=== PATIENT | female | born 1955 | race Two or more races ===

== ENCOUNTER 2020-04-16 10:59 | Observation (INO) | payer OTHER, SELFPAY ==
[2020-04-16] VITALS (7 sets, daily range): BP systolic 101–157; BP diastolic 45–76; PULSE 58–74; RESP 14–19; TEMP 36.4–37.4; O2SAT 94–99; BMI 32.0
[2020-04-16 13:04] LABS: Hematocrit 46.4 % (37-47); Hemoglobin 15.5 g/dl (12.0-16.0); Mean Corpuscular HGB Conc 33.4 g/dl (31.0-35.0); Mean Corpuscular Hemoglobin 29.4 pg (27.0-33.0); Mean Platelet Volume 10.2 fL (9.4-12.3); Platelet Count 243 X10*3/uL (160-400); Red Blood Count 5.27 X10*6/uL (4.20-5.50); Red Cell Distribution Width 12.3 % (11.0-16.0)
--- NOTE | 2020-04-16 13:05 | ED_ITS ---
HPI - Abdominal Pain General Chief Complaint: Abdominal Pain Stated Complaint: stomach pain,vomiting Time Seen by Provider: 04/16/20 13:01 Source: patient Mode of arrival: ambulatory Limitations: no limitations History of Present Illness HPI narrative: 65 y/o female with history of opioid dependence on Methadone gerardo ntinence, HLD, asthma, HTN, hx gastroenteritis with elevated LFTs in the past (hepatitis panel negative) who presents to the ED with upper abdominal pain, nausea, vomiting and chills for the last 2 days. She has vomited about 7-8 times, non-bilious, non-bloody. She also has had several episodes of diarrhea. No sick contacts, no food bourne illness exposure that she knows of, no recent abx use. She reports her symptoms are similar to when she was admitted here last year with gastroenteritis. Related Data Allergies Allergy/AdvReac Type Severity Reaction Status Date / Time codeine [CODEINE] AdvReac Severe VOMITING Unverified 01/12/20 15:43 FOR DAYS codeine Allergy Unknown Uncoded 07/01/18 00:00 Review of Systems Review of Systems Constitutional: No Fever, + Chills ENT/Mouth: No sore throat, No Rhinorrhea, No Swallowing Difficulty Eyes: No Eye Pain, No Swelling, No Redness Cardiovascular: No Chest Pain, No SOB, No Orthopnea, No Edema Respiratory: No Cough, No Sputum, No Wheezing, No dyspnea Gastrointestinal: + Nausea, + Vomiting, + Diarrhea, + abdominal Pain, No Hematochezia, No Melena Genitourinary: No Dysuria, No Urinary Frequency, No Hematuria Musculoskeletal: No joint pain, No Myalgias Skin: No Skin Lesions, No rash Neuro: + Weakness, No Numbness, No Dizziness, + Headache Psych: No Anxiety/Panic, No Depression Heme/Lymph: No Bruising, No Lymphadenopathy Endocrine: No Polyuria, No Polydipsia Physical Exam Vital Signs: Vital Signs: Last Vital Signs Temp 99.4 F 04/16/20 16:44 Pulse 69 04/16/20 16:44 Resp 14 04/16/20 16:44 BP 157/76 H 04/16/20 16:44 Pulse Ox 99 04/16/20 16:44 Body Mass Index 32.0 Appearance: Alert. Oriented X3. No acute distress. Eyes: Pupils equal, round and reactive to light. ENT: Pharynx normal. Neck: Normal inspection. Neck supple. CVS: Normal heart rate and rhythm. Pulses normal. Respiratory: No respiratory distress. Breath sounds normal. Abdomen: Soft with upper abdominal tenderness and epigastric tenderness. normal +BS x4 Skin: Skin warm and dry. Normal skin color. Normal skin turgor. No rashes. Extremities: No lower extremity edema. Neuro: Oriented X 3. No motor deficit. No sensory deficit. Course Course Course Narrative: 65 y/o female presenting with upper abdominal pain, N/V x2 days. Concern for possible cholecystitis, biliary colic, gastroenteritis. Less likely diverticulitis, SBO, mesenteric ischemia or perforation. Will get labs, give IVF and Zofran here. Dispo pending results and improvement. Reevaluation(s) Reevaluation #1: Lab workup showing leukocytosis 17.3, possible reactive. LFTs and lipase are normal. CT scan pending. Reevaluation #2: 16:20 - CT scan still pending. Patient received Zofran and GI cocktail with brief improvement but she is now vomiting again. Will give dose of Phenergan and reassess. Reevaluation #3: CT scan shows possible mild ileitis with small amount of free fluid in the pelvis, nondilated but thick walled loop of ileum with mesenteric stranding. Given persistent N/V will give dose of IV antibiotics here and reassess ability to tolerate PO. Signed out to Onel LOGAN. MDM - Abdominal Pain Lab Data Result diagrams: 04/16/20 12:49 04/16/20 12:50 Labs: Lab Results 04/16/20 04/16/20 04/16/20 Range/Units 12:49 12:49 12:50 WBC 17.3 H (4.8-10.8) X10*3/uL RBC 5.27 (4.20-5.50) X10*6/uL Hgb 15.5 (12.0-16.0) g/dl Hct 46.4 (37-47) % MCV 88.0 (80-98) fL MCH 29.4 (27.0-33.0) pg MCHC 33.4 (31.0-35.0) g/dl RDW 12.3 (11.0-16.0) % Plt Count 243 (160-400) X10*3/uL MPV 10.2 (9.4-12.3) fL Immature Gran % (Auto) Cancelled Neut % (Auto) Cancelled Lymph % (Auto) Cancelled [place] % (Auto) Cancelled Eos % (Auto) Cancelled Baso % (Auto) Cancelled Lymph # (Auto) Cancelled [place] # (Auto) Cancelled Eos # (Auto) Cancelled Baso # (Auto) Cancelled Abs Immat Gran (auto) Cancelled Absolute Neuts (auto) Cancelled Absolute Nucleated RBC 0.000 (0.0-0.012) X10*3/uL Nucleated RBC % (auto) 0.0 (0.0-0.2) /100WBC Neutrophils % (Manual) 87 H (45-73) % Band Neutrophils % 1 L (3-5) % Lymphocytes % (Manual) 11 L (20-40) % Monocytes % (Manual) 1 L (2-11) % Abs Neuts (Manual) 15.2 H (2.2-7.9) X10*3/uL Lymphocytes # (Manual) 1.9 (0.6-4.8) X10*3/uL Monocytes # (Manual) 0.2 (0.0-1.2) X10*3/uL Platelet Estimate NORMAL (NORMAL) Plt Morphology Comment NORMAL RBC Morphology NORMAL Hold Blue Top SEE NOTE Sodium 138 (135-145) mmol/L Potassium 5.2 H (3.3-5.1) mmol/l Chloride 103 (96-108) mmol/L Carbon Dioxide 24 (22-29) mmol/L Anion Gap 16 (12-20) BUN 27 H (9-16) mg/dL Creatinine 0.82 (0.5-1.4) mg/dL Estim Creat Clear Calc 63.2 Estimated GFR > 60 Random Glucose 142 H (60-115) mg/dL Calcium 9.4 (8.4-10.2) mg/dL Magnesium 1.7 (1.6-2.6) mg/dL Total Bilirubin 0.4 (0.0-1.0) mg/dL Direct Bilirubin 0.2 (0.0-0.5) mg/dL AST 30 (5-31) U/L ALT 31 (0-31) U/L Alkaline Phosphatase 110 (39-117) U/L Total Protein 7.2 (6.5-8.0) g/dL Albumin 4.3 (3.5-5.0) g/dL Lipase 17 (8-78) U/L Urine Color Urine Appearance Urine pH (5.0-8.0) Ur Specific [place] (1.005-1.025) Urine Protein (NEG-TRACE) MG/DL Urine Glucose (UA) (NEG) MG/DL Urine Ketones (NEG) MG/DL Urine Blood (NEG) Urine Nitrite (NEG) Ur Leukocyte Esterase (NEG) Urine RBC (0) /HPF Urine WBC (0-4) /HPF Ur Squamous Epith Cells /LPF Urine Bacteria /LPF Coronavirus (PCR) (Negative) Influenza Type A (PCR) (Negative) Influenza Type B (PCR) (Negative) RSV RNA Qual (PCR) (Negative) 04/16/20 04/16/20 Range/Units 13:07 15:41 WBC (4.8-10.8) X10*3/uL RBC (4.20-5.50) X10*6/uL Hgb (12.0-16.0) g/dl Hct (37-47) % MCV (80-98) fL MCH (27.0-33.0) pg MCHC (31.0-35.0) g/dl RDW (11.0-16.0) % Plt Count (160-400) X10*3/uL MPV (9.4-12.3) fL Immature Gran % (Auto) Neut % (Auto) Lymph % (Auto) [place] % (Auto) Eos % (Auto) Baso % (Auto) Lymph # (Auto) [place] # (Auto) Eos # (Auto) Baso # (Auto) Abs Immat Gran (auto) Absolute Neuts (auto) Absolute Nucleated RBC (0.0-0.012) X10*3/uL Nucleated RBC % (auto) (0.0-0.2) /100WBC Neutrophils % (Manual) (45-73) % Band Neutrophils % (3-5) % Lymphocytes % (Manual) (20-40) % Monocytes % (Manual) (2-11) % Abs Neuts (Manual) (2.2-7.9) X10*3/uL Lymphocytes # (Manual) (0.6-4.8) X10*3/uL Monocytes # (Manual) (0.0-1.2) X10*3/uL Platelet Estimate (NORMAL) Plt Morphology Comment RBC Morphology Hold Blue Top Sodium (135-145) mmol/L Potassium (3.3-5.1) mmol/l Chloride (96-108) mmol/L Carbon Dioxide (22-29) mmol/L Anion Gap (12-20) BUN (9-16) mg/dL Creatinine (0.5-1.4) mg/dL Estim Creat Clear Calc Estimated GFR Random Glucose (60-115) mg/dL Calcium (8.4-10.2) mg/dL Magnesium (1.6-2.6) mg/dL Total Bilirubin (0.0-1.0) mg/dL Direct Bilirubin (0.0-0.5) mg/dL AST (5-31) U/L ALT (0-31) U/L Alkaline Phosphatase (39-117) U/L Total Protein (6.5-8.0) g/dL Albumin (3.5-5.0) g/dL Lipase (8-78) U/L Urine Color YELLOW Urine Appearance CLEAR Urine pH 5.5 (5.0-8.0) Ur Specific [place] <= 1.005 (1.005-1.025) Urine Protein NEG (NEG-TRACE) MG/DL Urine Glucose (UA) NEG (NEG) MG/DL Urine Ketones NEG (NEG) MG/DL Urine Blood 1+ H (NEG) Urine Nitrite NEG (NEG) Ur Leukocyte Esterase NEG (NEG) Urine RBC 1-4 (0) /HPF Urine WBC 0 (0-4) /HPF Ur Squamous Epith Cells TRACE /LPF Urine Bacteria NONE /LPF Coronavirus (PCR) NEGATIVE (Negative) Influenza Type A (PCR) NEGATIVE (Negative) Influenza Type B (PCR) NEGATIVE (Negative) RSV RNA Qual (PCR) NEGATIVE (Negative) Discharge Plan Discharge Clinical Impression: Ileitis PMFSH Past Medical History Attestation statement: The following information was validated with the patient. Medical History High cholesterol HTN (hypertension) Social History Social History Smoked in Last 30 Days: No Use of substances other than those prescribed or required for medical reasons: Yes Substance Use Type Other:: Methadone Substance Use Frequency: Chronic Longstanding Advance Directives: No Advance Directives Information Provided: No
[2020-04-16 13:08] LABS: WBC ABN SCTR FOR CBC 1
[2020-04-16 13:34] LABS: Alanine Aminotransferase 31 U/L (0-31); Albumin Level 4.3 g/dL (3.5-5.0); Alkaline Phosphatase 110 U/L (39-117); Anion Gap 16 (12-20); Aspartate Amino Transferase 30 U/L (5-31); Bilirubin Direct 0.2 mg/dL (0.0-0.5); Bilirubin Total 0.4 mg/dL (0.0-1.0); Blood Urea Nitrogen 27 mg/dL (9-16); Calcium 9.4 mg/dL (8.4-10.2); Carbon Dioxide 24 mmol/L (22-29); Chloride 103 mmol/L (96-108); Creatinine Clr Calc Pharmacy 63.2; Estimated Glomerular Filt Rate > 60; Glucose Random 142 mg/dL (60-115); Lipase 17 U/L (8-78); Magnesium 1.7 mg/dL (1.6-2.6); Potassium 5.2 mmol/l (3.3-5.1); Sodium 138 mmol/L (135-145); Total Protein 7.2 g/dL (6.5-8.0)
[2020-04-16 13:36] LABS: Band Neutrophils Percent 1 % (3-5); Lymphocytes Percent Manual 11 % (20-40); Monocytes Percent Manual 1 % (2-11); Neutrophils Percent Manual 87 % (45-73)
[2020-04-16 13:39] LABS: Lymphocytes Absolute Manual 1.9 X10*3/uL (0.6-4.8); Monocytes Absolute Manual 0.2 X10*3/uL (0.0-1.2); Neutrophils Absolute Manual 15.2 X10*3/uL (2.2-7.9); Platelet Estimate NORMAL (NORMAL); Platelet Morphology Comment NORMAL; RBC Morphology NORMAL; White Blood Count 17.3 X10*3/uL (4.8-10.8)
--- NOTE | 2020-04-16 13:45 | CT_ITS ---
EXAMINATION: CT ABDOMEN AND PELVIS WITH CONTRAST CLINICAL INFORMATION: Abdominal pain with nausea and vomiting and elevated white count COMPARISON: October 14, 2018 TECHNIQUE: Multidetector volumetric images were obtained from the superior aspect of the liver through the pubic symphysis following administration 85 mL of Omnipaque 350 intravenous contrast. Sagittal and coronal reformatted images were obtained on the technologist's workstation. Oral contrast: No This CT examination was performed using dose optimization techniques as appropriate, variously including the following: *Automated exposure control *Adjustment of mA and/or kV according to patient size (this includes techniques or standardized protocols for targeted exams where dose is matched to indication/reason for exam; i.e. extremities or head) *Use of iterative reconstruction technique DLP: 615 mGy-cm FINDINGS: LUNG BASES: The visualized lung bases are unremarkable. No pleural or pericardial effusion. LIVER, GALLBLADDER, AND BILIARY TREE: There are multiple scattered subcentimeter low-density lesions likely representing cyst. No definite focal solid mass is appreciated. No intrahepatic bile duct dilatation. The gallbladder is distended. No evidence of cholecystitis or cholelithiasis. The common hepatic duct is prominent at approximately 9 mm diameter with the common bile duct being prominent at approximately 8 mm in diameter. No radiopaque density is seen within the common bile duct. This is similar in appearance to previous study of October 14, 2018. The common bile duct does taper down to normal size with a prominent ampulla of Vater being present. No jabier-cholecystitis fluid. PANCREAS: Unremarkable. SPLEEN: Unremarkable. ADRENAL GLANDS: Unremarkable. KIDNEYS AND URETERS: The kidneys are normal in size, shape, and attenuation. No hydronephrosis, hydroureter, or calculi seen. No perinephric stranding. BLADDER: Unremarkable. GASTROINTESTINAL TRACT: No dilated loops of large or small bowel are evident. No free air. There is small amount of free fluid seen about the pelvis. There is mild diverticulosis of the sigmoid colon without definite evidence of acute diverticulitis. There is small amount of mesenteric stranding but without definite adenopathy or abnormal fluid collection. The appendix is visualized and appears unremarkable. There is a single loop of what appears to be ileum about the pelvis which may have a thickened wall but without dilatation or adjacent fluid collection. This is in region of some haziness within the mesentery and may represent some form ileitis. ABDOMINAL WALL: No significant hernia is appreciated. LYMPH NODES: No lymphadenopathy appreciated. VASCULAR: Unremarkable. PELVIC VISCERA: Small amount of free fluid. No suspicious mass. OSSEOUS STRUCTURES: No suspicious instructed bony lesions identified. There is bilateral facet arthropathy L4-S1 with a mild grade 1 spondylolisthesis L4-L5. CT/CT abdomen pelvis w con IMPRESSION: Stable prominence of the common hepatic and common bile duct. Small amount of free fluid within the pelvis with question nondilated but thick-walled loop of ileum with some stranding within the mesentery. This may possibly represent ileitis but is a soft finding. No evidence of ileus or obstruction. No evidence of obstructive uropathy.
[2020-04-16] MEDS: Omeprazole 40 MG CAPSULE.DR PO (14:18)
[2020-04-16] MEDS: Magnesium Hydrox/Alum Hydrox 30 ML ORAL.SUSP PO (14:18)
[2020-04-16] MEDS: 0.9 % Sodium Chloride 1,000 ML 999 ML IVCONT (14:18)
[2020-04-16] MEDS: Lidocaine HCl Viscous 2 % 15 ML SOLUTION MUCOUS MEM (14:18)
[2020-04-16 14:23] LABS: Influenza A PCR NEGATIVE (Negative); Influenza B PCR NEGATIVE (Negative); Resp Syncy Virus RNA Qual PCR NEGATIVE (Negative); SARS COV2 PCR INHOUSE NEGATIVE (Negative)
[2020-04-16] MEDS: ondansetron HCL 4 MG/2 ML VIAL IVPUSH (14:24)
[2020-04-16] MEDS: iohexoL 350 MG/ML 100 ML INFUS..BTL 85 ML IV (14:45)
[2020-04-16 15:49] LABS: Glucose Urine UA NEG (NEG); Leukocyte Esterase Urine NEG (NEG); Nitrite Urine NEG (NEG); PH 5.5 (5.0-8.0); Specific Gravity - Urine <= 1.005 (1.005-1.025); Urine Blood 1+ (NEG); Urine Ketones NEG (NEG); Urine Protein NEG (NEG-TRACE)
[2020-04-16 15:52] LABS: Color Urine YELLOW
[2020-04-16 15:53] LABS: Appearance Urine CLEAR
[2020-04-16 15:57] LABS: Squamous Epithelial Cell Urine TRACE /LPF; WBC Urine 0 /HPF (0-4)
--- NOTE | 2020-04-16 17:00 | PC.NURSE ---
Pt with unresolved nausea. DESMOND Ayala notified. Pt medicated per emar.
[2020-04-16] MEDS: Prochlorperazine Edisylate 10 MG/2 ML VIAL 5 MG IVPUSH (18:49)
[2020-04-16] MEDS: metroNIDAZOLE/NS 500 MG/100 ML PIGGYBACK 100 MG IV (18:50)
[2020-04-16] MEDS: diphenhydrAMINE HCL 50 MG/ML VIAL 25 MG IVPUSH (18:50)
[2020-04-16 19:32] LABS: Lactic Acid 2.5 mmol/L (0.5-2.0)
[2020-04-16] MEDS: levoFLOXacin/D5W 500 MG/100 ML PIGGYBACK 100 MG IV (19:49)
--- NOTE | 2020-04-16 19:49 | HP_ITS ---
DATE OF SERVICE: 04/16/2020 CHIEF COMPLAINT: Abdominal pain. HISTORY OF PRESENT ILLNESS: A 65-year-old woman presenting to the ER with complaints of worsening abdominal pain, bloating, distention, and gas over the last 2 days. She reported also some cramping, vomiting, and diarrhea. She reported some chills without fever. She reported she had a similar episode like this in 2019, which seemed to be related to a viral gastroenteritis. She denied any improperly cooked foods or exposure to anyone with any gastrointestinal issues. She was noted to have an elevated white blood cell count of 17.3. No fever. She did receive PPI, IV fluid, promethazine, ceftriaxone, Flagyl, Levaquin. She will be admitted for further management and treatment of gastroenteritis versus ileitis. PAST MEDICAL HISTORY: 1. Hypertension. 2. Hyperlipidemia. 3. Asthma. 4. Opioid dependence, on methadone. PAST SURGICAL HISTORY: Left knee surgery. FAMILY HISTORY: Denies any cardiac or gastrointestinal problems. SOCIAL HISTORY: Denies any alcohol, tobacco, illicit drug use. ALLERGIES: CODEINE. MEDICATIONS: 1. Atorvastatin 20 mg at bedtime. 2. Breo Ellipta. 3. Clonidine 0.1 mg 1 tablet twice daily. 4. Fluticasone 1 spray intranasally daily. 5. Hydroxyzine 25 mg every 8 hours as needed. 6. Lisinopril 10 mg 1 tab daily. 7. Lorazepam 0.5 mg tab every 6 hours as needed. 8. Ondansetron 4 mg every 8 hours as needed for nausea. REVIEW OF SYSTEMS: CONSTITUTIONAL: Denies any fever. Reports chills. No decrease in appetite. RESPIRATORY: Denies any shortness of breath, cough, or sputum production. CARDIOVASCULAR: Denies any chest pain, orthopnea, PND, or edema. GASTROINTESTINAL: See HPI. GENITOURINARY: Denies any dysuria, frequency, or hematuria. MUSCULOSKELETAL: Denies any joint pain or swelling. NEUROPSYCH: Denies any weakness or seizures. All other systems are reviewed and are negative. PHYSICAL EXAMINATION: CONSTITUTIONAL: Resting in bed, appearing in no acute distress. VITAL SIGNS: 157/76, 68, 16, 97% on room air. SKIN: Intact without rash or open sores. HEENT: Head is normocephalic, atraumatic. Eyes, pupils are PERRLA. Sclerae anicteric. Mouth and throat: Mucous membranes are intact and moist. NECK: Supple. No lymphadenopathy. No JVD noted. CHEST: Clear to auscultation without wheezes, rhonchi, or rales. HEART: Regular rate and rhythm. Clear S1, S2. No murmurs, rubs, gallops. ABDOMEN: Positive bowel sounds. Abdomen is soft, nontender. No hepatomegaly or splenomegaly noted. NEURO: The patient is alert and oriented x3. Cranial nerves II through XII grossly intact without focal deficits. LABORATORY DATA: WBC 17.3, hemoglobin 15.5, hematocrit 46.4, platelets 243. Sodium is 138, potassium is 5.2, chloride is 103, BUN is 27, creatinine 0.82, glucose is 142, normal LFTs. Negative urinalysis. ASSESSMENT AND PLAN: A 65-year-old woman, who is being admitted with abdominal pain, nausea and vomiting. She reported that she had taken 2 Excedrin for headache yesterday, but has not been overly taking any NSAIDs. She reported her pain more at the mouth of the stomach which may be more related to gastroenteritis. Abdominal CT shows possible less likely ileitis. She also has some diarrhea, so differential diagnosis could include C diff as well. 1. Gastroenteritis. We will treat with PPI, antiemetics, IV fluids, GI consultation. We will also check stool studies and C diff due to diarrhea. We will hold off on antibiotics for now. She did receive several doses in the ER. 2. Leukocytosis. No signs of infection noted, but we will check stool studies. Hold off on antibiotics for now. Follow CBC closely. 3. Hyperkalemia. Mild. We will follow BMP tomorrow. 4. Hyperlipidemia. Continue statin. 5. Hypertension. Continue home medication. 6. Asthma. Albuterol as needed. 7. Deep vein thrombosis prophylaxis with heparin. 8. Case discussed with Dr. Barbour. 9. Full code. CALIXTO Molina JR/PATTY / [id number]
[2020-04-16 20:47] LABS: Reflex Lactate? Lactic Acid Added
--- NOTE | 2020-04-16 21:05 | PM.EVENT ---
Event Note Date of Service: 04/16/20 Event Note: Seen and examined independently. I agree with ATYLOR note, assessment and plan. Patient presents with abdominal pain, around the epigastric area, associated with nausea, vomiting and diarrhea for the past 2 days. Will treat for gastroenteritis For full note please see H&P
[2020-04-16 21:40] LABS: ~Lactic Acid-LAB USE ONLY 1.9 mmol/L (0.5-2.0)
[2020-04-16] MEDS: Heparin Sodium,Porcine 5,000 UNIT/ML VIAL 5000 UNIT SUBCUT (22:52)
[2020-04-17 04:00] VITALS: BP 142/69; PULSE 78; RESP 19; TEMP 36.7; O2SAT 96
[2020-04-17 04:01] VITALS: BP 112/58; PULSE 65; RESP 20; TEMP 36.7; O2SAT 97
[2020-04-17] MEDS: Omeprazole 20 MG CAPSULE.DR PO (05:47)
[2020-04-17 06:18] LABS: MANUAL DIFF FLAG NO
[2020-04-17 06:54] LABS: Anion Gap 13 (12-20); Basophils Percent Auto 0.2 % (0-2); Blood Urea Nitrogen 27 mg/dL (9-16); Calcium 8.4 mg/dL (8.4-10.2); Carbon Dioxide 25 mmol/L (22-29); Chloride 105 mmol/L (96-108); Creatinine Clr Calc Pharmacy 67.3; Estimated Glomerular Filt Rate > 60; Glucose Random 78 mg/dL (60-115); Hematocrit 37.3 % (37-47); Hemoglobin 12.5 g/dl (12.0-16.0); Imm Gran Abs Auto 0.03 X10*3/uL (0.00-0.03); Imm Gran Pct Auto 0.3 % (0.0-0.4); Lymphocytes Percent Auto 26.2 % (20-40); Mean Corpuscular HGB Conc 33.5 g/dl (31.0-35.0); Mean Corpuscular Hemoglobin 29.6 pg (27.0-33.0); Mean Corpuscular Volume 88.2 fL (80-98); Mean Platelet Volume 10.7 fL (9.4-12.3); Monocytes Absolute Auto 0.8 X10*3/uL (0.1-1.2); Monocytes Percent Auto 6.9 % (2-11); Neutrophils Absolute Auto 7.7 X10*3/uL (2.0-8.3); Neutrophils Percent Auto 66.4 % (45-73); Platelet Count 203 X10*3/uL (160-400); Potassium 3.9 mmol/l (3.3-5.1); Red Blood Count 4.23 X10*6/uL (4.20-5.50); Red Cell Distribution Width 12.4 % (11.0-16.0); Sodium 139 mmol/L (135-145); White Blood Count 11.5 X10*3/uL (4.8-10.8)
[2020-04-17 08:00] VITALS: BP 113/59; PULSE 65; RESP 18; TEMP 36.8; O2SAT 96
[2020-04-17] MEDS: Atorvastatin Calcium 20 MG TABLET PO (08:14)
--- NOTE | 2020-04-17 09:29 | PM.DS ---
DS: Providers Provider Date of admission: 04/16/20 19:10 Primary care physician: Unknown Physician DS: Diagnosis Discharge Diagnosis (1) Ileitis: Status: Acute (2) HTN (hypertension): Status: Acute (3) High cholesterol: Status: Acute DS: Medications Discharge Medications Home Medications: Home Medications Medication Instructions Recorded Confirmed atorvastatin 1 tab PO DAILY 04/16/20 04/16/20 estradiol [Yuvafem] 10 mcg VAGINAL 3XW 04/16/20 04/16/20 lisinopril 1 tab PO DAILY 04/16/20 04/16/20 methadone 50 mg PO DAILY 04/17/20 04/17/20 DS: Summary Hospital Course Hospital Course: Patient was admitted for ileitis, symptoms quickly resolved and pateint was able to tolerate solid diet, her abdominal exam was benign, her diarrhea stopped. she will be discharged home. Time Spent with Patient Time attestation: Total time spent providing and/or coordinating discharge services: Physical Exam Vital Signs: Vital Signs: Last Vital Signs Temp 98.2 F 04/17/20 08:00 Pulse 65 04/17/20 08:00 Resp 18 04/17/20 08:00 BP 113/59 L 04/17/20 08:00 Pulse Ox 96 04/17/20 08:00 Body Mass Index 32.0 General: AO X 3, no acute distress Resp: CTA bilateral CVS: S1,S2,RRR GI: soft, non tender, non distended Neuro: motor grossly intact Psych: appropriate affect DS: Data Data Completed and Pending Labs on day of discharge: 04/16/20 12:49 Complete Blood Count Man Dif Stat Hold Lt Blue - Possible Coag Stat 04/16/20 12:50 Basic Metabolic Panel Stat Lipase Stat Liver Panel Stat Magnesium Stat 04/16/20 13:02 ondansetron HCL [Zofran] 4 mg IVPUSH ONCE ONE 04/16/20 13:07 SARS-CoV2/FLU/RSV Stat 04/16/20 13:15 0.9 % Sodium Chloride [Ns] 1,000 ml IVCONT 999 mls/hr 04/16/20 13:36 Lidocaine HCl Viscous 2 % [Xylocaine Viscous 2 % Oral Arielle] 15 ml MUCOUS MEM ONCE ONE Magnesium Hydrox/Alum Hydrox [Maalox] 30 ml PO ONCE ONE Omeprazole [PriLOSEC] 40 mg PO ONCE ONE 04/16/20 13:45 CT abdomen pelvis w con Stat 04/16/20 13:58 Add Laboratory Test Stat 04/16/20 14:44 iohexoL 350 MG/ML [Omnipaque 350 MG/ML] 85 ml IV ONCE ONE 04/16/20 16:19 Promethazine HCL [Phenergan] 12.5 mg 0.9 % Sodium Chloride [Ns] 50 ml IV ONCE 04/16/20 16:25 Promethazine HCL [Phenergan] 25 mg IV .STK-MED ONE 04/16/20 16:43 cefTRIAXone sodium [Rocephin] 1 gm 0.9 % Sodium Chloride [Ns] 50 ml IV ONCE metroNIDAZOLE/NS [Flagyl] 500 mg in 100 ml IV ONCE 04/16/20 17:07 levoFLOXacin/D5W [Levaquin] 500 mg in 100 ml IV ONCE 04/16/20 17:39 Prochlorperazine Edisylate [Compazine] 5 mg IVPUSH ONCE ONE diphenhydrAMINE HCL [Benadryl] 25 mg IVPUSH ONCE ONE 04/16/20 18:41 Lactic Acid Stat 04/16/20 19:02 Transfer Order Routine 04/16/20 21:10 ~Lactic Acid-LAB USE ONLY Stat 04/17/20 05:54 Basic Metabolic Panel DAILY@0600 Complete Blood Count Auto Diff DAILY@0600 Laboratory Last Values WBC 11.5 X10*3/uL (4.8-10.8) H 04/17/20 05:54 RBC 4.23 X10*6/uL (4.20-5.50) 04/17/20 05:54 Hgb 12.5 g/dl (12.0-16.0) 04/17/20 05:54 Hct 37.3 % (37-47) 04/17/20 05:54 MCV 88.2 fL (80-98) 04/17/20 05:54 MCH 29.6 pg (27.0-33.0) 04/17/20 05:54 MCHC 33.5 g/dl (31.0-35.0) 04/17/20 05:54 RDW 12.4 % (11.0-16.0) 04/17/20 05:54 Plt Count 203 X10*3/uL (160-400) 04/17/20 05:54 MPV 10.7 fL (9.4-12.3) 04/17/20 05:54 Immature Gran % (Auto) 0.3 % (0.0-0.4) 04/17/20 05:54 Neut % (Auto) 66.4 % (45-73) 04/17/20 05:54 Lymph % (Auto) 26.2 % (20-40) 04/17/20 05:54 [place] % (Auto) 6.9 % (2-11) 04/17/20 05:54 Eos % (Auto) 0.0 % (0-4) 04/17/20 05:54 Baso % (Auto) 0.2 % (0-2) 04/17/20 05:54 Lymph # (Auto) 3.0 X10*3/uL (1.2-4.9) 04/17/20 05:54 [place] # (Auto) 0.8 X10*3/uL (0.1-1.2) 04/17/20 05:54 Eos # (Auto) 0.0 X10*3/uL (0.0-0.4) 04/17/20 05:54 Baso # (Auto) 0.0 X10*3/uL (0.0-0.2) 04/17/20 05:54 Abs Immat Gran (auto) 0.03 X10*3/uL (0.00-0.03) 04/17/20 05:54 Absolute Neuts (auto) 7.7 X10*3/uL (2.0-8.3) 04/17/20 05:54 Absolute Nucleated RBC 0.000 X10*3/uL (0.0-0.012) 04/17/20 05:54 Nucleated RBC % (auto) 0.0 /100WBC (0.0-0.2) 04/17/20 05:54 Neutrophils % (Manual) 87 % (45-73) H 04/16/20 12:49 Band Neutrophils % 1 % (3-5) L 04/16/20 12:49 Lymphocytes % (Manual) 11 % (20-40) L 04/16/20 12:49 Monocytes % (Manual) 1 % (2-11) L 04/16/20 12:49 Abs Neuts (Manual) 15.2 X10*3/uL (2.2-7.9) H 04/16/20 12:49 Lymphocytes # (Manual) 1.9 X10*3/uL (0.6-4.8) 04/16/20 12:49 Monocytes # (Manual) 0.2 X10*3/uL (0.0-1.2) 04/16/20 12:49 Platelet Estimate NORMAL (NORMAL) 04/16/20 12:49 Plt Morphology Comment NORMAL 04/16/20 12:49 RBC Morphology NORMAL 04/16/20 12:49 Hold Blue Top SEE NOTE 04/16/20 12:49 Sodium 139 mmol/L (135-145) 04/17/20 05:54 Potassium 3.9 mmol/l (3.3-5.1) D 04/17/20 05:54 Chloride 105 mmol/L (96-108) 04/17/20 05:54 Carbon Dioxide 25 mmol/L (22-29) 04/17/20 05:54 Anion Gap 13 (-) 04/17/20 05:54 BUN 27 mg/dL (9-16) H 04/17/20 05:54 Creatinine 0.77 mg/dL (0.5-1.4) 04/17/20 05:54 Estim Creat Clear Calc 67.3 04/17/20 05:54 Estimated GFR > 60 04/17/20 05:54 Random Glucose 78 mg/dL (60-115) D 04/17/20 05:54 Lactic Acid 2.5 mmol/L (0.5-2.0) H* 04/16/20 18:41 Lactic Acid Fup @ 2Hr 1.9 mmol/L (0.5-2.0) 04/16/20 21:10 Calcium 8.4 mg/dL (8.4-10.2) D 04/17/20 05:54 Magnesium 1.7 mg/dL (1.6-2.6) 04/16/20 12:50 Total Bilirubin 0.4 mg/dL (0.0-1.0) 04/16/20 12:50 Direct Bilirubin 0.2 mg/dL (0.0-0.5) 04/16/20 12:50 AST 30 U/L (5-31) 04/16/20 12:50 ALT 31 U/L (0-31) 04/16/20 12:50 Alkaline Phosphatase 110 U/L (39-117) 04/16/20 12:50 Total Protein 7.2 g/dL (6.5-8.0) 04/16/20 12:50 Albumin 4.3 g/dL (3.5-5.0) 04/16/20 12:50 Lipase 17 U/L (8-78) 04/16/20 12:50 Urine Color YELLOW 04/16/20 15:41 Urine Appearance CLEAR 04/16/20 15:41 Urine pH 5.5 (5.0-8.0) 04/16/20 15:41 Ur Specific [place] <= 1.005 (1.005-1.025) 04/16/20 15:41 Urine Protein NEG MG/DL (NEG-TRACE) 04/16/20 15:41 Urine Glucose (UA) NEG MG/DL (NEG) 04/16/20 15:41 Urine Ketones NEG MG/DL (NEG) 04/16/20 15:41 Urine Blood 1+ (NEG) H 04/16/20 15:41 Urine Nitrite NEG (NEG) 04/16/20 15:41 Ur Leukocyte Esterase NEG (NEG) 04/16/20 15:41 Urine RBC 1-4 /HPF (0) 04/16/20 15:41 Urine WBC 0 /HPF (0-4) 04/16/20 15:41 Ur Squamous Epith Cells TRACE /LPF 04/16/20 15:41 Urine Bacteria NONE /LPF 04/16/20 15:41 Coronavirus (PCR) NEGATIVE (Negative) 04/16/20 13:07 Influenza Type A (PCR) NEGATIVE (Negative) 04/16/20 13:07 Influenza Type B (PCR) NEGATIVE (Negative) 04/16/20 13:07 RSV RNA Qual (PCR) NEGATIVE (Negative) 04/16/20 13:07 Discharge Plan Discharge Patient Disposition: Home, Self-Care Referrals: Physician,Unknown [Primary Care Provider] - Discharge Medications: Continued atorvastatin 20 mg tablet 1 tab PO DAILY RF: 0 lisinopril 10 mg tablet 1 tab PO DAILY RF: 0 estradiol [Yuvafem] 10 mcg tablet 10 mcg vaginal 3XW RF: 0 methadone 50 mg PO DAILY RF: 0 Discharge Orders: Discharge Order (Routine); Ordered 04/17/20 Ordered By: Justyn Buckner Activity on Discharge: As tolerated Visit Report Forms: Patient Portal Discharge page Care Plan Goals: recovery Health Concerns: ilietits Plan of Treatment: bland diet, if continues to worsen follow up with gi
[2020-04-17] MEDS: lisinopriL 10 MG TABLET PO (09:45)
--- NOTE | 2020-04-17 09:58 | MHC.CM.PN ---
EMR REVIEWED, S/P GASTROENTERITIS, DISCHARGE PLAN HOME SELF-CARE, BOYFRIEND TO TRANSPORT, PT REPORTS GOING TO [facility] FOR PRIMARY CARE HOWEVER REPORTS PROVIDER CHANGES FREQUENTLY SO SHE IS UNSURE WHO THE PCP IS, CM WILL COMPLETE HEALTH CARE PROXY WITH PATIENT BEFORE DISCHARGE
--- NOTE | 2020-04-17 10:21 | MHC.CM.PN ---
PT DISCHARGING HOME SELF-CARE, PT CURRENTLY WAITING FOR BOYFRIEND TO ARRIVE FOR TRANSPORTATION. CM COMPLETED HEALTH CARE PROXY WITH PATIENT: HAY MCCOLLUM (SON) [phone], PT DECLINED ALTERANATE AT THIS TIME.
== END 2020-04-17 10:59 | disposition home or self-care (01) ==
LOC: HO.ED 13:23 → HO.S3 19:39
PROVIDERS: Nurse Practitioner Acute Care; Physician Assistant; Admitting Provider Internal Medicine; Emergency Provider Emergency Medicine; Visit Provider Internal Medicine
DX: K52.9 Noninfective gastroenteritis and colitis, unspecified (principal); D72.829 Elevated white blood cell count, unspecified; E87.5 Hyperkalemia; E78.5 Hyperlipidemia, unspecified; I10 Essential (primary) hypertension; E78.00 Pure hypercholesterolemia, unspecified; J45.909 Unspecified asthma, uncomplicated; R10.9 Unspecified abdominal pain; R11.2 Nausea with vomiting, unspecified; K82.8 Other specified diseases of gallbladder; F11.21 Opioid dependence, in remission; R68.83 Chills (without fever); R53.1 Weakness; R51.9 Headache, unspecified; Z88.8 Allergy status to other drugs, medicaments and biological substances; Z20.828 Contact with and (suspected) exposure to other viral communicable diseases; Z79.899 Other long term (current) drug therapy
CPT/HCPCS: 0241U; 36415; 74177; 80048; 80076; 81001; 83605; 83690; 83735; 85007; 85025; 85027; 87040; 96361; 96365; 96367; 96375; 99218; 99285; J1200; J1956; J2405; Q9967

== ENCOUNTER 2020-05-14 14:28 | Outpatient (REF) | payer OTHER, SELFPAY ==
[2020-05-14 17:16] LABS: C Reactive Protein 0.27 mg/dL (< or = 0.50)
[2020-05-14 17:51] LABS: Folate 19.5 ng/mL (> or = 4.0); Vitamin B12 663 pg/mL (200-900)
== END 2020-05-14 14:29 | disposition home or self-care (01) ==
LOC: HO.LAB 14:28
PROVIDERS: Visit Provider Internal Medicine Gastroenterology
DX: R93.5 Abnormal findings on diagnostic imaging of other abdominal regions, including retroperitoneum (principal); R14.0 Abdominal distension (gaseous); K52.9 Noninfective gastroenteritis and colitis, unspecified; Z88.5 Allergy status to narcotic agent; Z79.899 Other long term (current) drug therapy
CPT/HCPCS: 36415; 81479; 82397; 82607; 82746; 83520; 84443; 86140; 88346; 88350

== ENCOUNTER 2020-06-08 08:16 | Day surgery (SDC) | payer OTHER, SELFPAY ==
[2020-06-04 14:34] VITALS: BMI 32.5
--- NOTE | 2020-06-07 10:01 | HO.ANESPROP2 ---
Documented by User: Ailyn Dela Cruz 06/07/20 10:02 HPI - Anesthesia Eval Consult details Narrative: 65yo F for Upper Endoscopy and Colonoscopy *Methadone daily PMFSH Active Problems Active Problems: All Active Problems (Updated 06/04/20 @ 14:29 by Tri Brady) Ileitis (Acute) Abnormal computed tomography of abdomen and pelvis (Acute) Chronic constipation (Acute) Abdominal bloating (Acute) HTN (hypertension) (Acute) High cholesterol (Acute) Past Medical History Medical History Asthma High cholesterol HTN (hypertension) Hx of opioid abuse Family History Family History Father History of stomach cancer Mother Hx of type 2 diabetes mellitus Hx of angina pectoris Breast cancer Surgical History Surgical History History of colonoscopy Hx of knee surgery Social History Social History Household Members: Significant Other Housing: Apartment Alcohol intake: never Smoking Status: Never smoker Second Hand Smoke Exposure: No Substance Use Type: Former Substance User and Unknown Substance Use Type Other:: On Methadone Advance Directives: No Advance Directives Information Provided: No Advance Directives on File: No service: No Current occupational status: employed and unemployed Meds Allergies Allergy/AdvReac Type Severity Reaction Status Date / Time codeine [CODEINE] AdvReac Severe VOMITING Unverified 06/04/20 14:28 FOR DAYS Home Medications Medication Instructions Recorded Confirmed Last Taken Type atorvastatin 1 tab PO DAILY 04/16/20 06/04/20 Unknown History lisinopril 1 tab PO DAILY 04/16/20 06/04/20 Unknown History methadone 50 mg PO DAILY 04/17/20 05/14/20 1 Day Ago History ~04/16/20 50 mg fluticasone furoate-vilanterol 1 puff INHALATION DAILY 06/04/20 06/04/20 Unknown History [Breo Ellipta] fluticasone propionate 1 spray INTRANASAL DAILY 06/04/20 06/04/20 Unknown History Exam Exam Date and Time: June 07, 2020 1001 Height,Weight and Vital Signs: Height 5 ft Weight 75.75 kg Pertinent Lab Results Pertinent Lab Results: Laboratory Tests 04/17/20 04/17/20 05:54 05:54 WBC 11.5 H Hgb 12.5 Hct 37.3 Plt Count 203 Sodium 139 Potassium 3.9 D Chloride 105 Carbon Dioxide 25 BUN 27 H Creatinine 0.77 Assessment and Plan Assessment Anesthesia Assessment: Chart Reviewed Documented by User: Carie Mcfarland 06/08/20 08:43 PMFSH Past Medical History Medical History Asthma High cholesterol HTN (hypertension) Hx of opioid abuse Family History Family History Father History of stomach cancer Mother Hx of type 2 diabetes mellitus Hx of angina pectoris Breast cancer Surgical History Surgical History History of colonoscopy Hx of knee surgery Social History Social History Household Members: Significant Other Housing: Apartment Alcohol intake: never Smoking Status: Never smoker Second Hand Smoke Exposure: No Substance Use Type: Former Substance User and Unknown Substance Use Type Other:: On Methadone Advance Directives: No Advance Directives Information Provided: No Advance Directives on File: No service: No Current occupational status: employed and unemployed Meds Allergies Allergy/AdvReac Type Severity Reaction Status Date / Time codeine [CODEINE] AdvReac Severe VOMITING Unverified 06/04/20 14:28 FOR DAYS Home Medications Medication Instructions Recorded Confirmed Last Taken Type atorvastatin 1 tab PO DAILY 04/16/20 06/04/20 Unknown History lisinopril 1 tab PO DAILY 04/16/20 06/04/20 Unknown History methadone 50 mg PO DAILY 04/17/20 05/14/20 1 Day Ago History ~04/16/20 50 mg fluticasone furoate-vilanterol 1 puff INHALATION DAILY 06/04/20 06/04/20 Unknown History [Breo Ellipta] fluticasone propionate 1 spray INTRANASAL DAILY 06/04/20 06/04/20 Unknown History Exam Airway Mallampati Class: II TM Dist: >3cm Neck ROM: Full Assessment and Plan Assessment Anesthesia Assessment: Anesthesia Plan Discussed and Chart Reviewed Final Anesthetic Review NPO: Yes ASA Class: II Final Preanesthetic Review: No Changes in Pt Med Stat, Meds/Allgs Chart Reviewed, Consent Obtained/Reviewed and Anes Risks/Benef Reviewed Patient Risk: Low Procedure Risk: Low Assessment/Block/Sedation in SS: Assess/Block/Sedation-SS Anesthetic Plan Anesthetic Plan: MAC: Disposition: Standard PACU
[2020-06-08 08:40] VITALS: BP 122/59; PULSE 60; RESP 16; TEMP 36.1; O2SAT 100; BMI 32.5
--- NOTE | 2020-06-08 08:44 | W.PM.OPN ---
Operative Note Operative Note Date of Service: 06/08/20 Narrative: Pre-op diagnosis: Abd pain and bloating, abnormal CT scan Post-op diagnosis: other (Gastritis, diverticulosis) Procedure: FLEXIBLE TRANSORAL UPPER GASTROINTESTINAL ENDOSCOPY WITH BIOPSIES AND COLONOSCOPY TILL CECUM WITH BIOPSIES UPPER ENDOSCOPY Consent: Indications for the procedure and potential complications of bleeding, perforation, reaction to medications and missed diagnosis were discussed with the patient and informed consent was obtained. Instrument: Olympus GIF H 190 mid size upper endoscope Monitoring: Vital signs and clinical assessment, continuous EKG monitoring, Pulse oximetry, Carbon Dioxide monitoring and blood pressure monitoring were done throughout the procedure. Procedure: The patient was placed in the left lateral decubitis position and pre-procedure medications were administered and a bite block was placed. The endoscope was inserted into the mouth and advanced under direct vision to the third part of duodenum. A careful inspection was made as the upper endoscope was withdrawn including a retroflexed examination of the proximal stomach; Findings and interventions are described below. Findings: Larynx: Normal Esophagus: Tortuous esophagus with increased tertiary contractions without stricture or ring. GE junction at 35. No esophagitis or Crisostomo's. Stomach: Mild gastric erythema. Biopsies were obtained. Grade 2 flap valve on retroflexed examination of the cardia. Duodenum: Normal bulb and descending duodenum. Biopsies were obtained from 3rd part of duodenum to check for celiac sprue. Intervention: Biopsies as noted above COLONOSCOPY PROCEDURE NOTE Consent: Indications for the procedure and potential complications of bleeding, perforation, reaction to medications and missed diagnosis were discussed with the patient and informed consent was obtained. Instrument: Olympus PCF H 190 L variable stiffness pediatric colonoscope Monitoring: Vital signs and clinical assessment, intermittent blood pressure monitoring, continuous EKG monitoring, Pulse oximetry and Carbon Dioxide monitoring were done throughout the procedure. Colon withdrawl time was 20 minutes. Procedure: The patient was placed in the left lateral decubitis position and pre-procedure medications were administered. After a digital rectal examination of the ano-rectum, the video colonoscope was inserted into the rectum and advanced through the colon to the cecum. The colonoscope was slowly withdrawn in a retrograde panoramic fashion and the colon mucosa was carefully examined including a retroflexed view of the rectum. Findings and interventions are described below. Procedure Difficulty: Without difficulty Findings: Terminal Ileum: Distal 10-15 cms was examined and appeared normal. Random biopsies were obtained. Cecum: Normal Ascending Colon: Normal Transverse Colon: Normal Descending Colon: Moderate diverticulosis Sigmoid Colon: Moderate diverticulosis Rectum: Normal Ano-rectum: Normal Colon preparation: Good Impression and Post Procedure Diagnosis: Endoscopy Findings: STOMACH: Mild gastritis DUODENUM: Normal - bxed to check for celiac sprue. Colonoscopy Findings: no polyps were detected. random biopsies were obtained from the TI, right and left colon to check for IBD/Crohn's disease. Moderate diverticulosis seen in the left colon Plan: Await pathology results Patient has an appointment on 06/18/20 in the [facility] with Yelena Johnson M.D. Repeat Colonoscopy interval based on path results - in 5 years if biopsies are normal. Above findings were reviewed with the patient and Gastritis and diverticulosis handouts were given in the discharge area Surgeon: Yelena Johnson MD Anesthesia: MAC (Dr Mcfarland) Estimated blood loss (mL): 0 Pathology: other (A. Small bowel, B. Gastric antrum, C. TI, D. Rt colon, E. Left Colon) Condition: stable Disposition: PACU
--- NOTE | 2020-06-08 08:44 | MHC.SHP ---
Pre-Procedural Eval Section A The patient is an INPATIENT: No The History & Physical has been completed within 30 days and I have reviewed it.: Yes Section B Chief Complaint: abdominal distension Details of Present Illness: abdominal pain, abnormal abdominal CT scan Allergies: Allergies Allergy/AdvReac Type Severity Reaction Status Date / Time codeine [CODEINE] AdvReac Severe VOMITING Unverified 06/04/20 14:28 FOR DAYS Review of Systems Sugical H&P ROS: Negative: Constitution, Cardiovascular and Respiratory and Yes, Specify: Gastrointestinal (abdominal bloating) Exam Surgical H&P Exam: Normal: Heart, Normal: Lungs and Normal: Extremities and Significant Findings: Abdomen (Minimal RLQ tenderness) Plan I have reviewed the history and physical and performed a pertinent physical examination on my patient. No changes have occurred unless specified.
[2020-06-08] MEDS: Lactated Ringers 1,000 ML 100 ML IVCONT (08:54)
[2020-06-08 09:54] VITALS: BP 116/69; PULSE 68; RESP 16; TEMP 36.2; O2SAT 98
[2020-06-08 10:09] VITALS: BP 113/55; PULSE 60; RESP 16; TEMP 36.2; O2SAT 99
== END 2020-06-08 10:56 ==
LOC: HO.SSS 08:17
PROVIDERS: Visit Provider Internal Medicine Gastroenterology
PROC: (CPT 45380; principal; 2020-06-08 09:40)
DX: R93.5 Abnormal findings on diagnostic imaging of other abdominal regions, including retroperitoneum (principal); R14.0 Abdominal distension (gaseous); K57.30 Diverticulosis of large intestine without perforation or abscess without bleeding; K22.8 Other specified diseases of esophagus; K29.70 Gastritis, unspecified, without bleeding; I10 Essential (primary) hypertension; Z79.899 Other long term (current) drug therapy
CPT/HCPCS: 45380; 43239; 88305; 88342; J3010

== ENCOUNTER → 2020-06-18 14:33 | Outpatient (BNVA) | payer OTHER, SELFPAY | PROVIDERS: Visit Provider Internal Medicine Gastroenterology ==

== ENCOUNTER 2021-04-21 22:38 | Inpatient (IN) | payer OTHER, SELFPAY ==
--- NOTE | ~2021-04-21 | CT_ITS ---
EXAMINATION: CT ABDOMEN AND PELVIS WITH CONTRAST CLINICAL INFORMATION: Abdominal pain. Nausea and vomiting. Diarrhea. COMPARISON: 04/16/2020 TECHNIQUE: Multidetector volumetric images were obtained from the superior aspect of the liver through the pubic symphysis following administration 85 mL of Omnipaque 350 intravenous contrast. Sagittal and coronal reformatted images were obtained on the technologist's workstation. Oral contrast: No This CT examination was performed using dose optimization techniques as appropriate, variously including the following: *Automated exposure control *Adjustment of mA and/or kV according to patient size (this includes techniques or standardized protocols for targeted exams where dose is matched to indication/reason for exam; i.e. extremities or head) *Use of iterative reconstruction technique DLP: 579 mGy-cm FINDINGS: LUNG BASES: The visualized lung bases are unremarkable. LIVER, GALLBLADDER, AND BILIARY TREE: The liver is normal in size, shape, and attenuation. No intrahepatic biliary ductal dilatation. There are a few hypoattenuating subcentimeter lesions in the liver which are too small to fully characterize. These are unchanged from previous.. The gallbladder is unremarkable with no evidence of radiopaque gallstones, gallbladder wall thickening, or obvious pericholecystic inflammatory changes. The common bile duct remains dilated measuring up to 0.8 cm . PANCREAS: Unremarkable. SPLEEN: Unremarkable. ADRENAL GLANDS: Unremarkable. KIDNEYS AND URETERS: The kidneys are normal in size, shape, and attenuation. No hydronephrosis, hydroureter, or calculi seen. No perinephric stranding. BLADDER: Unremarkable. GASTROINTESTINAL TRACT: Small hiatal hernia. Otherwise unremarkable stomach. Normal caliber small bowel. No obstruction. No colonic wall thickening or adjacent inflammatory changes. Normal appendix. No free air or free fluid. ABDOMINAL WALL: No significant hernia is appreciated. LYMPH NODES: Normal. VASCULAR: Unremarkable. PELVIC VISCERA: The uterus and adnexa are unremarkable. OSSEOUS STRUCTURES: No acute or suspicious osseous abnormality. Grade 1 anterolisthesis of L4 on L5. Mild degenerative changes throughout the spine. CT/CT abdomen pelvis w con IMPRESSION: No acute findings of the abdomen or pelvis. No obstruction or evidence of ileus. No inflammatory change. Mild common bile duct dilatation is similar to prior. No ductal filling defect. Fleischner guidelines were followed.
[2021-04-21 23:18] VITALS: BP 205/87; PULSE 61; RESP 16; TEMP 36.9; O2SAT 98; BMI 33.2
--- NOTE | 2021-04-21 23:59 | ECG_ITS ---
Test Reason : ABD PAIN Blood Pressure : / mmHG Vent. Rate : 064 BPM Atrial Rate : 064 BPM P-R Int : 146 ms QRS Dur : 096 ms QT Int : 424 ms P-R-T Axes : 065 049 031 degrees QTc Int : 437 ms Normal sinus rhythm with sinus arrhythmia Normal ECG When compared with ECG of 15-OCT-2018 13:47, Incomplete right bundle branch block is no longer Present Referred By: Wallace Solis Electronically Signed By:Curtis Goins
--- NOTE | 2021-04-22 00:03 | ED.GENADULT ---
HPI - General Adult General Chief complaint: General Medical Stated complaint: abd pain Time Seen by Provider: 04/21/21 23:29 Source: patient Mode of arrival: ambulatory Limitations: no limitations History of Present Illness HPI narrative: 66-year-old female who presents emergency department for evaluation of abdominal pain, nausea, vomiting and diarrhea. Patient states that her symptoms started at 8:30 p.m. she complains of epigastric abdominal pain. She states the pain is intermittent, sharp pain which is greater than 10/10 at its worst. She states that she had chills and sweats associated with her pain. Patient states that she has vomited to august to count. She denies any hematemesis. She has also had 4-5 loose, watery diarrheal stools with no blood in her stool. She denies any recent antibiotic use or recent travel. Patient had a similar presentation 04/16/2020 and was diagnosed with intractable vomiting with an ileus. She states she was hospitalized for 3 days. the patient had the 2 shot Moderna COVID-19 vaccination with her 2nd shot being in May of 2020. Related Data Home Medications Medication Instructions Recorded Confirmed atorvastatin 20 mg tablet 1 tab PO DAILY 04/16/20 06/04/20 lisinopril 10 mg tablet 1 tab PO DAILY 04/16/20 06/04/20 methadone 50 mg PO DAILY 04/17/20 05/14/20 fluticasone furoate 200 1 puff INHALATION DAILY 06/04/20 06/04/20 mcg-vilanterol 25 mcg/dose inhalation powder (Breo Ellipta) fluticasone propionate 50 1 spray INTRANASAL DAILY 06/04/20 06/04/20 mcg/actuation nasal spray,suspension Allergies Allergy/AdvReac Type Severity Reaction Status Date / Time codeine [CODEINE] AdvReac Severe VOMITING Verified 06/18/20 14:34 FOR DAYS Review of Systems Review of Systems: Yes all other systems are reviewed and are negative PMF Past Medical History Medical History Asthma High cholesterol HTN (hypertension) Hx of opioid abuse Surgical History History of colonoscopy Hx of knee surgery Family History Family History (Updated 06/18/20 @ 14:36 by XAVIER García) Father History of stomach cancer Mother Hx of type 2 diabetes mellitus Hx of angina pectoris Breast cancer Diabetes Family/Other Diabetes Social History Social History (Updated 06/18/20 @ 14:37 by XAVIER García) Household Members: Significant Other Housing: Apartment Do you presently have visiting nurse or other home services: No Alcohol intake: never Patient Tobacco Use Status: Never used Tobacco Second Hand Smoke Exposure: No Use of substances other than those prescribed or required for medical reasons: No Advance Directives: No Advance Directives Information Provided: No Patient : No service: No Current occupational status: employed and unemployed Physical Exam Vital Signs: Vital Signs: Last Vital Signs Temp 98.4 F 04/21/21 23:18 Pulse 68 04/22/21 00:56 Resp 16 04/22/21 00:56 BP 149/72 H 04/22/21 00:56 Pulse Ox 98 04/22/21 00:56 BMI result Body Mass Index 33.2 Const: Other: Very pale-appearing female patient, pleasant, cooperative, able to answer all questions difficulty. HENMT: Head: Yes normal to inspection, Yes normocephalic and Yes atraumatic Ears: external ears normal General nose exam: Normal external nose present Face and sinus: Yes normal facial exam Mouth: Normal oral and palatal mucosa present Throat: Yes posterior oropharynx normal Eyes: General: appearance normal, both eyes and all related structures Pupils: Equal, round and reactive pupils present Neck: Neck: Yes normal visual inspection, Yes no lymphadenopathy, Yes trachea midline and Yes supple Chest: Chest palpation & inspection: normal inspection of the chest and normal palpation of entire chest wall Resp: Effort & Inspection: normal respiratory effort and able to speak in complete sentences Auscultation: clear to auscultation bilaterally Cardio: Rate: regular rate Rhythm: regular rhythm Heart sounds: S1 normal heart sound present, S2 normal heart sound present and no murmurs GI: Inspection: Yes normal to inspection Palpation (GI): Soft to palpation, Tenderness to palpation present (GI) in the epigastrum ( Moderate) and no guarding Auscultation: normal bowel sounds : General: Yes no CVA tenderness Back/Spine/Pelvis: Back: no CVA tenderness Skin: General skin exam: no rashes or lesions noted Neuro: Cranial nerves: Yes CN's II-XII intact bilaterally and Yes Equal, round and reactive pupils present Cognition (Neuro): normal cognition Motor exam (neuro): 5/5 motor strength present throughout Extrem: General: Yes normal to inspection Psych: Appearance: grossly normal Speech and movement: Normal speech and movement present Affect: normal affect Attitude: cooperative Thought process: Normal thought process present Thought content: Normal thought content present Course Course Course Narrative: 66-year-old female who presents emergency department for evaluation of epigastric pain, nausea, vomiting, diarrhea, diaphoresis with symptoms beginning at 8:30 p.m.. Patient states that she has had intractable vomiting and 4-5 episodes of loose watery diarrheal stool with no blood in the emesis or the stool. Patient had a similar presentation in March 2020 and was diagnosed with intractable vomiting and ileus. Vital signs reveal that she was hypertensive with a blood pressure of 205/87 otherwise were unremarkable. Examination did reveal epigastric tenderness. Differential includes but is not limited to gastroenteritis, ileus, partial small-bowel obstruction, pancreatitis, C difficile colitis, COVID-19 infection. I did order a CBC, CMP, lipase, SARs -COVID 2/flu/RSV, urinalysis, urine drug screen, alcohol level, lactic acid. Patient was ordered to get Toradol 15 mg IV, Zofran 4 mg IV normal saline x1 L. I will obtain a CT scan of the abdomen pelvis with IV contrast to evaluate the patient for possible ileus versus partial small-bowel obstruction. 0109: Laboratory evaluation: WBC was elevated 22,400, bicarb was low at 21, BUN was elevated 33, lactate is elevated 3.1. COVID-19, influenza and RSV were negative. CT scan of the abdomen pelvis was interpreted as follows by the radiologist: Stable prominence of the common hepatic and common bile duct.Small amount of free fluid within the pelvis with question nondilated but thick-walled loop of ileum with some stranding within the mesentery. This may possibly represent ileitis but is a soft finding. No evidence of ileus or obstruction. No evidence of obstructive uropathy. The patient's presentation findings are consistent with ileitis of unclear etiology wiith severe dehydration secondary to vomiting and diarrhea.. Patient had a similar presentation 2 years prior And she was treated with IV antibiotics and admitted. Therefore, I ordered blood cultures x2, Zosyn 4.5 g IV. The patient does have an elevated lactic acid but I do not think that this is secondary to sepsis and I think this is secondary to her severe vomiting and dehydration. She was ordered to get a 30 cc/kilogram normal saline fluid bolus. she only got minimal improvement of her pain with the IV Toradol therefore she was ordered morphine 4 mg IV. 0144: I did discuss the patient with the covering hospitalist. He requested that we limit the patient's IV fluid to 1 L since the patient does have chronic diastolic congestive heart failure. The patient will be admitted to the hospital service for further management. Medical Decision Making Lab Data Result diagrams: 04/22/21 00:03 04/22/21 00:03 Labs: Lab Results 04/22/21 04/22/21 04/22/21 Range/Units 00:03 00:03 00:03 WBC 22.4 H (4.8-10.8) X10*3/uL RBC 5.15 (4.20-5.50) X10*6/uL Hgb 15.0 (12.0-16.0) g/dl Hct 46.6 (37.0-47.0) % MCV 90.5 (80.0-98.0) fL MCH 29.1 (27.0-33.0) pg MCHC 32.2 (31.0-35.0) g/dl RDW 12.7 (11.0-16.0) % Plt Count 232 (160-400) X10*3/uL MPV 10.5 (9.4-12.3) fL Immature Gran % (Auto) 0.5 H (0.0-0.4) % Neut % (Auto) 79.6 H (45-73) % Lymph % (Auto) 12.5 L (20-40) % [place] % (Auto) 5.9 (2-11) % Eos % (Auto) 1.2 (0-4) % Baso % (Auto) 0.3 (0-2) % Lymph # (Auto) 2.8 (1.2-4.9) X10*3/uL [place] # (Auto) 1.3 H (0.1-1.2) X10*3/uL Eos # (Auto) 0.3 (0.0-0.4) X10*3/uL Baso # (Auto) 0.1 (0.0-0.2) X10*3/uL Abs Immat Gran (auto) 0.12 H (0.00-0.03) X10*3/uL Absolute Neuts (auto) 17.8 H (2.0-8.3) x10*3/uL Absolute Nucleated RBC 0.000 (0.0-0.012) X10*3/uL Nucleated RBC % (auto) 0.0 (0.0-0.2) /100WBC Sodium 142 (135-145) mmol/L Potassium 4.0 (3.3-5.1) mmol/L Chloride 107 (96-108) mmol/L Carbon Dioxide 21 L (22-29) mmol/L Anion Gap 18 (12-20) BUN 33 H (9-16) mg/dL Creatinine 0.98 (0.5-1.4) mg/dL Estim Creat Clear Calc 53.2 Estimated GFR 57 Random Glucose 145 H (60-115) mg/dL Lactic Acid (0.5-2.0) mmol/L Calcium 10.0 D (8.4-10.2) mg/dL Total Bilirubin 0.3 (0.0-1.0) mg/dL AST 28 (5-31) U/L ALT 31 (0-31) U/L Alkaline Phosphatase 117 (39-117) U/L Troponin I High Sens < 3.5 (<3.5-17.0) ng/L Total Protein 7.5 (6.5-8.0) g/dL Albumin 4.4 (3.5-5.0) g/dL Lipase 22 (8-78) U/L Ethyl Alcohol mg/dL Influenza Type A (PCR) (Negative) Influenza Type B (PCR) (Negative) RSV RNA Qual (PCR) (Negative) SARS-CoV-2 RNA (RT-PCR) (Negative) 04/22/21 04/22/21 04/22/21 Range/Units 00:03 00:36 00:36 WBC (4.8-10.8) X10*3/uL RBC (4.20-5.50) X10*6/uL Hgb (12.0-16.0) g/dl Hct (37.0-47.0) % MCV (80.0-98.0) fL MCH (27.0-33.0) pg MCHC (31.0-35.0) g/dl RDW (11.0-16.0) % Plt Count (160-400) X10*3/uL MPV (9.4-12.3) fL Immature Gran % (Auto) (0.0-0.4) % Neut % (Auto) (45-73) % Lymph % (Auto) (20-40) % [place] % (Auto) (2-11) % Eos % (Auto) (0-4) % Baso % (Auto) (0-2) % Lymph # (Auto) (1.2-4.9) X10*3/uL [place] # (Auto) (0.1-1.2) X10*3/uL Eos # (Auto) (0.0-0.4) X10*3/uL Baso # (Auto) (0.0-0.2) X10*3/uL Abs Immat Gran (auto) (0.00-0.03) X10*3/uL Absolute Neuts (auto) (2.0-8.3) x10*3/uL Absolute Nucleated RBC (0.0-0.012) X10*3/uL Nucleated RBC % (auto) (0.0-0.2) /100WBC Sodium (135-145) mmol/L Potassium (3.3-5.1) mmol/L Chloride (96-108) mmol/L Carbon Dioxide (22-29) mmol/L Anion Gap (12-20) BUN (9-16) mg/dL Creatinine (0.5-1.4) mg/dL Estim Creat Clear Calc Estimated GFR Random Glucose (60-115) mg/dL Lactic Acid 3.1 H* (0.5-2.0) mmol/L Calcium (8.4-10.2) mg/dL Total Bilirubin (0.0-1.0) mg/dL AST (5-31) U/L ALT (0-31) U/L Alkaline Phosphatase (39-117) U/L Troponin I High Sens (<3.5-17.0) ng/L Total Protein (6.5-8.0) g/dL Albumin (3.5-5.0) g/dL Lipase (8-78) U/L Ethyl Alcohol < 10 mg/dL Influenza Type A (PCR) NEGATIVE (Negative) Influenza Type B (PCR) NEGATIVE (Negative) RSV RNA Qual (PCR) NEGATIVE (Negative) SARS-CoV-2 RNA (RT-PCR) NEGATIVE (Negative) 04/22/21 Range/Units 00:36 WBC (4.8-10.8) X10*3/uL RBC (4.20-5.50) X10*6/uL Hgb (12.0-16.0) g/dl Hct (37.0-47.0) % MCV (80.0-98.0) fL MCH (27.0-33.0) pg MCHC (31.0-35.0) g/dl RDW (11.0-16.0) % Plt Count (160-400) X10*3/uL MPV (9.4-12.3) fL Immature Gran % (Auto) (0.0-0.4) % Neut % (Auto) (45-73) % Lymph % (Auto) (20-40) % [place] % (Auto) (2-11) % Eos % (Auto) (0-4) % Baso % (Auto) (0-2) % Lymph # (Auto) (1.2-4.9) X10*3/uL [place] # (Auto) (0.1-1.2) X10*3/uL Eos # (Auto) (0.0-0.4) X10*3/uL Baso # (Auto) (0.0-0.2) X10*3/uL Abs Immat Gran (auto) (0.00-0.03) X10*3/uL Absolute Neuts (auto) (2.0-8.3) x10*3/uL Absolute Nucleated RBC (0.0-0.012) X10*3/uL Nucleated RBC % (auto) (0.0-0.2) /100WBC Sodium (135-145) mmol/L Potassium (3.3-5.1) mmol/L Chloride (96-108) mmol/L Carbon Dioxide (22-29) mmol/L Anion Gap (12-20) BUN (9-16) mg/dL Creatinine (0.5-1.4) mg/dL Estim Creat Clear Calc Estimated GFR Random Glucose (60-115) mg/dL Lactic Acid (0.5-2.0) mmol/L Calcium (8.4-10.2) mg/dL Total Bilirubin (0.0-1.0) mg/dL AST (5-31) U/L ALT (0-31) U/L Alkaline Phosphatase (39-117) U/L Troponin I High Sens (<3.5-17.0) ng/L Total Protein (6.5-8.0) g/dL Albumin (3.5-5.0) g/dL Lipase 19 (8-78) U/L Ethyl Alcohol mg/dL Influenza Type A (PCR) (Negative) Influenza Type B (PCR) (Negative) RSV RNA Qual (PCR) (Negative) SARS-CoV-2 RNA (RT-PCR) (Negative) ECG Data Attestation: I personally reviewed and interpreted this ECG as follows: Interpretation: 05/02/1999: Normal sinus rhythm rate of 64, normal VA interval, QRS duration and QTC interval, no ST segment elevation, no ST segment depression, no PACs, no PVCs Discharge Plan Discharge Clinical Impression: Ileus, Abdominal pain, Vomiting, Diarrhea, Acute dehydration Patient Disposition: Admitted As Inpatient
[2021-04-22 00:08] LABS: MANUAL DIFF FLAG NO
[2021-04-22 00:09] LABS: Basophils Absolute Auto 0.1 X10*3/uL (0.0-0.2); Basophils Percent Auto 0.3 % (0-2); Eosinophils Absolute Auto 0.3 X10*3/uL (0.0-0.4); Eosinophils Percent Auto 1.2 % (0-4); Hematocrit 46.6 % (37.0-47.0); Imm Gran Abs Auto 0.12 X10*3/uL (0.00-0.03); Imm Gran Pct Auto 0.5 % (0.0-0.4); Lymphocytes Absolute Auto 2.8 X10*3/uL (1.2-4.9); Lymphocytes Percent Auto 12.5 % (20-40); Mean Corpuscular HGB Conc 32.2 g/dl (31.0-35.0); Mean Corpuscular Hemoglobin 29.1 pg (27.0-33.0); Mean Corpuscular Volume 90.5 fL (80.0-98.0); Mean Platelet Volume 10.5 fL (9.4-12.3); Monocytes Absolute Auto 1.3 X10*3/uL (0.1-1.2); Monocytes Percent Auto 5.9 % (2-11); Neutrophils Absolute Auto 17.8 x10*3/uL (2.0-8.3); Neutrophils Percent Auto 79.6 % (45-73); Platelet Count 232 X10*3/uL (160-400); Red Blood Count 5.15 X10*6/uL (4.20-5.50); Red Cell Distribution Width 12.7 % (11.0-16.0); White Blood Count 22.4 X10*3/uL (4.8-10.8)
[2021-04-22] MEDS: 0.9 % Sodium Chloride 1,000 ML 999 ML IV (00:09)
[2021-04-22] MEDS: ondansetron HCL 4 MG/2 ML VIAL IVPUSH (00:10)
[2021-04-22] MEDS: Ketorolac Tromethamine 30 MG/ML VIAL 15 MG IVPUSH (00:11)
[2021-04-22 00:29] LABS: Alanine Aminotransferase 31 U/L (0-31); Albumin Level 4.4 g/dL (3.5-5.0); Alkaline Phosphatase 117 U/L (39-117); Anion Gap 18 (12-20); Aspartate Amino Transferase 28 U/L (5-31); Bilirubin Total 0.3 mg/dL (0.0-1.0); Blood Urea Nitrogen 33 mg/dL (9-16); Carbon Dioxide 21 mmol/L (22-29); Chloride 107 mmol/L (96-108); Creatinine Clr Calc Pharmacy 53.2; Estimated Glomerular Filt Rate 57; Glucose Random 145 mg/dL (60-115); Lipase 22 U/L (8-78); Sodium 142 mmol/L (135-145); Total Protein 7.5 g/dL (6.5-8.0)
[2021-04-22 00:32] LABS: Troponin-I High Sensitivity < 3.5 ng/L (<3.5-17.0)
[2021-04-22 00:49] LABS: Influenza A PCR NEGATIVE (Negative); Influenza B PCR NEGATIVE (Negative); Resp Syncy Virus RNA Qual PCR NEGATIVE (Negative); SARS COV2 PCR INHOUSE NEGATIVE (Negative)
[2021-04-22 00:54] LABS: Ethanol < 10 mg/dL
[2021-04-22 00:56] VITALS: BP 149/72; PULSE 68; RESP 16; O2SAT 98
[2021-04-22 00:56] LABS: Lipase 19 U/L (8-78)
[2021-04-22 01:02] LABS: Lactic Acid 3.1 mmol/L (0.5-2.0)
[2021-04-22] MEDS: 0.9 % Sodium Chloride 2,313.33 ML 2313.33 ML IV (01:23)
[2021-04-22] MEDS: iohexoL 350 MG/ML 100 ML INFUS..BTL 85 ML IV (02:20)
[2021-04-22 02:40] LABS: Reflex Lactate? Lactic Acid Added
[2021-04-22] MEDS: cefTRIAXone sodium 1 GM in 0.9 % Sodium Chloride 50 ML IV (02:50)
[2021-04-22] MEDS: metroNIDAZOLE/NS 500 MG/100 ML PIGGYBACK 100 MG IV (03:02)
--- NOTE | 2021-04-22 03:12 | PC.NURSE ---
delay in antibiotic administration due to patient being a difficult iv stick. multiple attempts to get in contact with phleb
[2021-04-22 03:18] LABS: Basophils Percent Auto 0.2 % (0-2); Eosinophils Percent Auto 0.1 % (0-4); Hematocrit 42.2 % (37.0-47.0); Hemoglobin 13.8 g/dl (12.0-16.0); Imm Gran Abs Auto 0.06 X10*3/uL (0.00-0.03); Imm Gran Pct Auto 0.3 % (0.0-0.4); Lymphocytes Absolute Auto 1.1 X10*3/uL (1.2-4.9); MANUAL DIFF FLAG SCAN; Mean Corpuscular HGB Conc 32.7 g/dl (31.0-35.0); Mean Corpuscular Hemoglobin 29.2 pg (27.0-33.0); Mean Corpuscular Volume 89.2 fL (80.0-98.0); Mean Platelet Volume 10.2 fL (9.4-12.3); Monocytes Absolute Auto 0.5 X10*3/uL (0.1-1.2); Monocytes Percent Auto 2.9 % (2-11); Neutrophils Percent Auto 90.5 % (45-73); Platelet Count 182 X10*3/uL (160-400); Red Blood Count 4.73 X10*6/uL (4.20-5.50); Red Cell Distribution Width 12.6 % (11.0-16.0); SCAN SMEAR FLAG 1; White Blood Count 18.7 X10*3/uL (4.8-10.8)
[2021-04-22 03:37] LABS: SLIDE REVIEW VERIFIED
[2021-04-22] MEDS: Piperacillin Sodium/Tazobactam 4.5 GM in 0.9 % Sodium Chloride 100 ML IV (03:41)
[2021-04-22 03:57] LABS: Anion Gap 16 (12-20); Blood Urea Nitrogen 29 mg/dL (9-16); Calcium 9.3 mg/dL (8.4-10.2); Carbon Dioxide 22 mmol/L (22-29); Chloride 106 mmol/L (96-108); Creatinine Clr Calc Pharmacy 62.1; Estimated Glomerular Filt Rate > 60; Glucose Random 123 mg/dL (60-115); Potassium 4.4 mmol/L (3.3-5.1); Sodium 140 mmol/L (135-145); ~Lactic Acid-LAB USE ONLY 2.9 mmol/L (0.5-2.0)
[2021-04-22] MEDS: Dextrose 5 % and 0.45 % NaCl 1,000 ML 50 ML IVCONT ×2 (04:11→17:51)
--- NOTE | 2021-04-22 04:40 | P.HPHOSP_ITS ---
History of Present Illness Date of Service: 04/22/21 Chief Complaint: Nausea vomiting 66-year-old female with a past medical history of hypertension, hyperlipidemia, asthma, history of opiate abuse-on methadone presented to the hospital today with chief complaint of nausea and vomiting. Over the past 1 day she has been having nausea and vomiting-multiple episodes, denies any blood in the vomiting; also complains of abdominal discomfort secondary to vomiting; pain is sharp, diffuse, worsens with vomiting; Patient reported loose stools; denies any blood in the stool. Patient denies any chest pain palpitations Denies any urinary symptoms. Review of all other systems is negative except mentioned above ER course: Per ER team patient noted to be a mild diffuse abdominal tenderness; and nausea and vomiting; given IV fluids; CT scan showed no acute intra-abdominal pathology. Admitted to the hospital for supportive care. [facility] Medical History Asthma High cholesterol HTN (hypertension) Hx of opioid abuse Family History (Updated 06/18/20 @ 14:36 by XAVIER García) Father History of stomach cancer Mother Hx of type 2 diabetes mellitus Hx of angina pectoris Breast cancer Diabetes Family/Other Diabetes Surgical History History of colonoscopy Hx of knee surgery Social History (Updated 06/18/20 @ 14:37 by XAVIER García) Household Members: Significant Other Housing: Apartment Do you presently have visiting nurse or other home services: No Alcohol intake: never Patient Tobacco Use Status: Never used Tobacco Second Hand Smoke Exposure: No Use of substances other than those prescribed or required for medical reasons: No Advance Directives: No Advance Directives Information Provided: No Patient : No service: No Current occupational status: employed and unemployed Meds Allergies Allergy/AdvReac Type Severity Reaction Status Date / Time codeine [CODEINE] AdvReac Severe VOMITING Verified 06/18/20 14:34 FOR DAYS Active Medications: Current Medications Acetaminophen (Acetaminophen 325 Mg Tablet) 650 mg PO Q6H PRN PRN Reason: Pain, Mild (Pain Scale 1-3) Heparin Sodium (Porcine) (Heparin Sodium,Porcine 5,000 Unit/Ml Vial) 5,000 unit SUBCUT Q12H VICKIE Hydromorphone HCl (Hydromorphone Hcl 0.5 Mg/0.5 Ml Syringe) 0.5 mg IVPUSH Q4H PRN; Protocol PRN Reason: Pain, Severe (Pain Scale 7-10) Dextrose/Sodium Chloride (D51/2ns) 1,000 mls @ 50 mls/hr IVCONT .Q20H VICKIE Last Admin: 04/22/21 04:11 Dose: 50 mls/hr Documented by: Ceftriaxone Sodium 1 gm/ (Sodium Chloride) 50 mls @ 100 mls/hr IV Q12H VICKIE Metronidazole (Flagyl) 500 mg in 100 mls @ 100 mls/hr IV Q8H VICKIE Ceftriaxone Sodium 1 gm/ (Sodium Chloride) 50 mls @ 100 mls/hr IV 0249 [facility] Last Infusion: 04/22/21 04:03 Dose: Infused Documented by: Metronidazole (Flagyl) 500 mg in 100 mls @ 100 mls/hr IV Q8H [facility] Last Infusion: 04/22/21 04:03 Dose: Infused Documented by: Melatonin (Melatonin 3 Mg Tablet) 6 mg PO BEDTIME PRN PRN Reason: Insomnia Pharmacy Consult (Consult Rx Perform Med Rec) 1 each MISCELLANE ONCE PRN PRN Reason: Consult order Senna (Sennosides 8.6 Mg Tablet) 17.2 mg PO BEDTIME PRN PRN Reason: Constipation Sodium Chloride (0.9 % Sodium Chloride Flush 3 Ml Syringe) 3 ml IVFLUSH QSHIFT [facility] Home Medications Medication Instructions Recorded Confirmed Last Taken Type atorvastatin 20 mg tablet 1 tab PO DAILY 04/16/20 06/04/20 Unknown History lisinopril 10 mg tablet 1 tab PO DAILY 04/16/20 06/04/20 Unknown History methadone 50 mg PO DAILY 04/17/20 05/14/20 1 Day Ago History ~04/16/20 50 mg fluticasone furoate 200 1 puff INHALATION DAILY 06/04/20 06/04/20 Unknown History mcg-vilanterol 25 mcg/dose inhalation powder (Breo Ellipta) fluticasone propionate 50 1 spray INTRANASAL DAILY 06/04/20 06/04/20 Unknown History mcg/actuation nasal spray,suspension Physical Exam Vital Signs and Narrative: Vital Signs: Last Vital Signs Temp 98.4 F 04/21/21 23:18 Pulse 68 04/22/21 00:56 Resp 16 04/22/21 00:56 BP 149/72 H 04/22/21 00:56 Pulse Ox 98 04/22/21 00:56 BMI result Body Mass Index 33.2 Gen: Appears be in no acute distress HEENT: NCAT, Moist mucosa. Pulmonary: Vesicular breath sounds, fair air entry CVS: Normal S1-S2 Abdomen: BS+, Soft, mildly tender diffusely, no guarding no rigidity Extremities: Warm well perfused Neuro: Alert and awake. Results Labs CBC and Chem 7: 04/22/21 03:13 04/22/21 03:13 Labs: Laboratory Results - last 24 hr 04/22/21 04/22/21 04/22/21 00:03 00:03 00:03 MCV 90.5 MCH 29.1 MCHC 32.2 RDW 12.7 Plt Count 232 MPV 10.5 Immature Gran % (Auto) 0.5 H Neut % (Auto) 79.6 H Lymph % (Auto) 12.5 L [place] % (Auto) 5.9 Eos % (Auto) 1.2 Baso % (Auto) 0.3 Lymph # (Auto) 2.8 [place] # (Auto) 1.3 H Eos # (Auto) 0.3 Baso # (Auto) 0.1 Abs Immat Gran (auto) 0.12 H Absolute Neuts (auto) 17.8 H Absolute Nucleated RBC 0.000 Nucleated RBC % (auto) 0.0 Smear Tech's Comments Anion Gap 18 Estim Creat Clear Calc 53.2 Estimated GFR 57 Random Glucose 145 H Lactic Acid Lactic Acid F/U @ 2Hr Calcium 10.0 D Total Bilirubin 0.3 AST 28 ALT 31 Alkaline Phosphatase 117 Troponin I High Sens < 3.5 Total Protein 7.5 Albumin 4.4 Lipase 22 Ethyl Alcohol Influenza Type A (PCR) Influenza Type B (PCR) RSV RNA Qual (PCR) SARS-CoV-2 RNA (RT-PCR) 04/22/21 04/22/21 04/22/21 00:03 00:36 00:36 MCV MCH MCHC RDW Plt Count MPV Immature Gran % (Auto) Neut % (Auto) Lymph % (Auto) [place] % (Auto) Eos % (Auto) Baso % (Auto) Lymph # (Auto) [place] # (Auto) Eos # (Auto) Baso # (Auto) Abs Immat Gran (auto) Absolute Neuts (auto) Absolute Nucleated RBC Nucleated RBC % (auto) Smear Tech's Comments Anion Gap Estim Creat Clear Calc Estimated GFR Random Glucose Lactic Acid 3.1 H* Lactic Acid F/U @ 2Hr Calcium Total Bilirubin AST ALT Alkaline Phosphatase Troponin I High Sens Total Protein Albumin Lipase Ethyl Alcohol < 10 Influenza Type A (PCR) NEGATIVE Influenza Type B (PCR) NEGATIVE RSV RNA Qual (PCR) NEGATIVE SARS-CoV-2 RNA (RT-PCR) NEGATIVE 04/22/21 04/22/21 04/22/21 00:36 03:13 03:13 MCV 89.2 MCH 29.2 MCHC 32.7 RDW 12.6 Plt Count 182 MPV 10.2 Immature Gran % (Auto) 0.3 Neut % (Auto) 90.5 H Lymph % (Auto) 6.0 L [place] % (Auto) 2.9 Eos % (Auto) 0.1 Baso % (Auto) 0.2 Lymph # (Auto) 1.1 L [place] # (Auto) 0.5 Eos # (Auto) 0.0 Baso # (Auto) 0.0 Abs Immat Gran (auto) 0.06 H Absolute Neuts (auto) 17.0 H Absolute Nucleated RBC 0.000 Nucleated RBC % (auto) 0.0 Smear Tech's Comments VERIFIED Anion Gap 16 Estim Creat Clear Calc 62.1 Estimated GFR > 60 Random Glucose 123 H Lactic Acid Lactic Acid F/U @ 2Hr Calcium 9.3 D Total Bilirubin AST ALT Alkaline Phosphatase Troponin I High Sens Total Protein Albumin Lipase 19 Ethyl Alcohol Influenza Type A (PCR) Influenza Type B (PCR) RSV RNA Qual (PCR) SARS-CoV-2 RNA (RT-PCR) 04/22/21 03:13 MCV MCH MCHC RDW Plt Count MPV Immature Gran % (Auto) Neut % (Auto) Lymph % (Auto) [place] % (Auto) Eos % (Auto) Baso % (Auto) Lymph # (Auto) [place] # (Auto) Eos # (Auto) Baso # (Auto) Abs Immat Gran (auto) Absolute Neuts (auto) Absolute Nucleated RBC Nucleated RBC % (auto) Smear Tech's Comments Anion Gap Estim Creat Clear Calc Estimated GFR Random Glucose Lactic Acid Lactic Acid F/U @ 2Hr 2.9 H* Calcium Total Bilirubin AST ALT Alkaline Phosphatase Troponin I High Sens Total Protein Albumin Lipase Ethyl Alcohol Influenza Type A (PCR) Influenza Type B (PCR) RSV RNA Qual (PCR) SARS-CoV-2 RNA (RT-PCR) Imaging Radiologist's Impressions: Impressions Abdomen/Pelvis CT 04/22/21 02:00 IMPRESSION: No acute findings of the abdomen or pelvis. No obstruction or evidence of ileus. No inflammatory change. Mild common bile duct dilatation is similar to prior. No ductal filling defect. Fleischner guidelines were followed. Assessment and Plan (1) Abdominal pain: Status: Acute 66-year-old female with a past medical history of hypertension, hyperlipidemia, asthma, history of opiate abuse-on methadone presented to the hospital today with chief complaint of nausea and vomiting. Nausea/vomiting/abdominal discomfort: CT abdomen showed no acute findings Supportive care IV fluids Zofran p.r.n. Dilaudid p.r.n. Will obtain urine toxicology to check for cannabis Patient had recent presentation similar to piece-CT scan showed ileitis on 04/16/21 Hypertension/hyperlipidemia: Continue home medications once med rec is done Opiate dependence: Patient on methadone. Addiction Medicine consult DVT prophylaxis: SCD boots Code status: Full code Quality Stroke Does the patient have a stroke diagnosis?: No VTE Prior VTE?: No VTE Risk Level:: Medical - moderate - high VTE Device Contraindication: Treatment Not Indicated VTE Drug Contraindication: N/A - Med Ordered
[2021-04-22 04:46] VITALS: BP 141/73; PULSE 80; RESP 16; O2SAT 98
[2021-04-22 05:01] LABS: Appearance Urine CLEAR; Color Urine STRAW; Glucose Urine UA 250 MG/DL (NEG); Leukocyte Esterase Urine NEG (NEG); Nitrite Urine NEG (NEG); PH 7.5 (5.0-8.0); UACC Culture Trigger NO; Urine Blood TRACE (NEG); Urine Ketones NEG (NEG); Urine Protein NEG (NEG-TRACE)
[2021-04-22 05:06] LABS: Squamous Epithelial Cell Urine TRACE /LPF; WBC Urine 0-2 /HPF (0-4)
[2021-04-22 05:14] LABS: Amphetamine Screen Urine Not Detected (Not Detect); Barbiturates, Urine Not Detected (Not Detect); Benzodiazepines Screen Urine Not Detected (Not Detect); Cannabinoid Screen Urine Not Detected (Not Detect); Cocaine Screen Urine POSITIVE (Not Detect); Fentanyl, urine POSITIVE (Not Detect); Opiate Screen Urine POSITIVE (Not Detect); Phencyclidine Screen Urine Not Detected (Not Detect)
[2021-04-22 05:16] LABS: Reflex Lactate? 2 Y
[2021-04-22 06:12] LABS: ~Lactic Acid-LAB USE ONLY 3.4 mmol/L (0.5-2.0)
--- NOTE | 2021-04-22 08:13 | P.CNGI_ITS ---
History of Present Illness Data of Consult Service Date: 04/22/21 Requesting physician: Ty Altamirano Primary Care Provider: Unknown Physician HPI Reason for consult: abd pain, nausea, vomiting, ileus 66 YF with htn presented to [facility] ED early this morning with abd pain, nausea, vomiting and diarrhea: HPI narrative:? 66-year-old female who presents emergency department for evaluation of abdominal pain, nausea, vomiting and diarrhea.? Patient states that her symptoms started at 8:30 p.m.? she complains of epigastric abdominal pain.? She states the pain is intermittent, sharp pain which is greater than 10/10 at its worst.? She states that she had chills and sweats associated with her pain.? Patient states that she has vomited to august times to count.? She denies any hematemesis.? She has also had 4-5 loose, watery diarrheal stools with no blood in her stool.? She denies any recent antibiotic use or recent travel. Patient had a similar presentation 04/16/2020 and was diagnosed with intractable vomiting with an ileus.? ? She states she was hospitalized for 3 days.? The patient had the 2 shot Moderna COVID-19 vaccination with her 2nd shot being in May of 2020 . Pt reports having nausea and non-bloody vomiting-multiple episodes over the past day; also complains of abdominal discomfort secondary to vomiting; pain is sharp, diffuse, worsens with vomiting; Patient reported loose stools; denies any blood in the stool.? Unable to recall any precipitating factors. States she had rice, pork and custard a few hrs prior to onset of symptoms Patient denies any chest pain palpitations Denies any urinary symptoms.? Feeling better now with resolution of nausea, vomiting and diarrhea. She has been using MiraLax 2 to 3 times a week as needed for constipation. Review of all other systems is negative except mentioned above ER course: Per ER team patient noted to be a mild diffuse abdominal tenderness; and nausea and vomiting; given IV fluids; CT scan showed no acute intra-abdominal pathology.? Admitted to the hospital for supportive care. IMAGING STUDIES:? 04/22/[address] SCAN SHOWED: GASTROINTESTINAL TRACT: Small hiatal hernia. Otherwise unremarkable stomach. Normal caliber small bowel. No obstruction. No colonic wall thickening or adjacent inflammatory changes. Normal appendix. No free air or free fluid.? IMPRESSION: No acute findings of the abdomen or pelvis. No obstruction or evidence of ileus. No inflammatory change. Mild common bile duct dilatation is similar to prior. No ductal filling defect.? 04/16/[address] SCAN SHOWED: Stable prominence of the common hepatic and common bile duct. Small amount of free fluid within the pelvis with question nondilated but thick-walled loop of ileum with some stranding within the mesentery. This may possibly represent ileitis but is a soft finding. No evidence of ileus or obstruction. No evidence of obstructive uropathy. ENDOSCOPIC STUDIES: 06/08/20 EGD AND COLONOSCOPY SHOWED: Endoscopy Findings:? STOMACH: Mild gastritis DUODENUM: Normal - bxed to check for celiac sprue. Colonoscopy Findings:? no polyps were detected. random biopsies were obtained from the TI, right and left colon to check for IBD/Crohn's disease. Moderate diverticulosis seen in the left colon Random biopsies obtained from the TI, right and left colon were normal. Plan:? Patient has an appointment on 06/18/20 in the GI Clinic with Yelena Johnson M.D. Repeat Colonoscopy interval based on path results - in 5 years if biopsies are normal. Above findings were reviewed with the patient and Gastritis and diverticulosis handouts were given in the discharge area BIOPSIES SHOWED: B.? Stomach, antrum, biopsy:? Gastric antral mucosa with mild reactive gastropathy; negative for Helicobacter pylori, intestinal metaplasia and dysplasia. C. Terminal ileum, biopsy:? Ileal mucosa within normal limits; negative for active or chronic ileitis. D.? Colon, right side, biopsy:? Colonic mucosa within normal limits; negative for active, chronic or microscopic colitis. E.? Colon, left side, biopsy:? Colonic mucosa within normal limits; negative for active, chronic or microscopic colitis. Review of Systems Review of Systems: as listed in HPI Constitutional: Constitutional: Denies fever(s), Denies headache(s) and Denies weight loss Eyes: Eyes: Denies eye discharge and Denies irritation ENT: Reports Normal hearing present, Denies dysphagia, Denies dizziness and Denies headache(s) Cardiovascular: Cardiovascular: Denies chest pain, Denies leg edema and Denies dyspnea on exertion Respiratory: Respiratory: Denies cough, Denies dyspnea on exertion and Denies wheezing Gastrointestinal: Gastrointestinal: Reports abdominal pain, Denies change in bowel habits, Denies dysphagia, Denies heartburn, Reports diarrhea, Reports nausea and Reports vomiting Genitourinary: Genitourinary: Denies difficulty voiding and Denies dysuria Musculoskeletal: Musculoskeletal: Denies back pain and Denies arthralgias Integumentary/Breasts: Skin/Breast: Denies pruritus, Denies rash and Denies jaundice Neurologic: Reports Normal hearing present, Denies Abnormal speech present, Denies dizziness, Denies headache(s) and Denies seizure-like activity Psychiatric: Psychiatric: Denies anxiety, Denies depression and Denies panic attacks Endocrine: Endocrine: Denies cold intolerance, Denies flushing and Denies heat intolerance Hematologic/Lymphatic: Hematologic/Lymphatic: Denies easy bleeding and Denies easy bruising Allergic/Immunologic: Allergic/Immunologic: Denies wheezing PMFSH Past Medical History Medical History Asthma High cholesterol HTN (hypertension) Hx of opioid abuse Family History Family History (Updated 06/18/20 @ 14:36 by XAVIER García) Father History of stomach cancer Mother Hx of type 2 diabetes mellitus Hx of angina pectoris Breast cancer Diabetes Family/Other Diabetes Surgical History Surgical History History of colonoscopy Hx of knee surgery Social History Social History (Updated 06/18/20 @ 14:37 by XAVIER García) Household Members: Significant Other Housing: Apartment Do you presently have visiting nurse or other home services: No Alcohol intake: never Patient Tobacco Use Status: Never used Tobacco Second Hand Smoke Exposure: No Use of substances other than those prescribed or required for medical reasons: No Advance Directives: No Advance Directives Information Provided: No Patient : No service: No Current occupational status: employed Meds Allergies Allergy/AdvReac Type Severity Reaction Status Date / Time codeine [CODEINE] AdvReac Severe VOMITING Verified 06/18/20 14:34 FOR DAYS Active Medications: Current Medications Acetaminophen (Acetaminophen 325 Mg Tablet) 650 mg PO Q6H PRN PRN Reason: Pain, Mild (Pain Scale 1-3) Heparin Sodium (Porcine) (Heparin Sodium,Porcine 5,000 Unit/Ml Vial) 5,000 unit SUBCUT Q12H VICKIE Last Admin: 04/22/21 05:52 Dose: Not Given Documented by: Hydromorphone HCl (Hydromorphone Hcl 0.5 Mg/0.5 Ml Syringe) 0.5 mg IVPUSH Q4H PRN; Protocol PRN Reason: Pain, Severe (Pain Scale 7-10) Dextrose/Sodium Chloride (D51/2ns) 1,000 mls @ 50 mls/hr IVCONT .Q20H [facility] Last Admin: 04/22/21 04:11 Dose: 50 mls/hr Documented by: Melatonin (Melatonin 3 Mg Tablet) 6 mg PO BEDTIME PRN PRN Reason: Insomnia Pharmacy Consult (Consult Rx Perform Med Rec) 1 each MISCELLANE ONCE PRN PRN Reason: Consult order Senna (Sennosides 8.6 Mg Tablet) 17.2 mg PO BEDTIME PRN PRN Reason: Constipation Sodium Chloride (0.9 % Sodium Chloride Flush 3 Ml Syringe) 3 ml IVFLUSH QSHIFT [facility] Home Medications Medication Instructions Recorded Confirmed Last Taken Type atorvastatin 20 mg tablet 1 tab PO DAILY 04/16/20 04/22/21 04/21/21 History lisinopril 10 mg tablet 1 tab PO DAILY 04/16/20 04/22/21 04/21/21 History fluticasone propionate 50 1 spray INTRANASAL DAILY PRN 06/04/20 04/22/21 Unknown History mcg/actuation nasal spray,suspension methadone 10 mg/mL oral concentrate 33 mg PO DAILY 04/22/21 04/22/21 Unknown History Physical Exam Vital Signs: Vital Signs: Last Vital Signs Temp 98.4 F 04/21/21 23:18 Pulse 80 04/22/21 04:46 Resp 16 04/22/21 04:46 BP 141/73 H 04/22/21 04:46 Pulse Ox 98 04/22/21 04:46 BMI result Body Mass Index 33.2 Const: General: no acute distress Nutritional Appearance: obese Orientation/consciousness: patient oriented x3 Limitations: no limitations HENMT: Head: Yes normal to inspection Ears: hearing grossly normal bilaterally Mouth: Normal oral and palatal mucosa present Eyes: Sclerae: sclerae normal Pupils: Equal, round and reactive pupils present Neck: Neck: Yes normal visual inspection Chest: Chest palpation & inspection: normal inspection of the chest Resp: Effort & Inspection: normal respiratory effort Auscultation: clear to auscultation bilaterally Cardio: Palpation: normal PMI Rate: regular rate Rhythm: regular rhythm Heart sounds: S1 normal heart sound present, S2 normal heart sound present and no murmurs GI: Palpation (GI): Soft to palpation, nontender and No hepatosplenomegaly present Auscultation: normal bowel sounds Rectal Exam - Female: deferred Skin: General skin exam: no rashes or lesions noted Neuro: General: patient oriented x3, gait normal and moves all extremities Cranial nerves: Yes Equal, round and reactive pupils present and Yes Normal hearing present Speech: No Abnormal speech present Psych: Appearance: grossly normal Mental Status: mental status grossly normal Results Labs CBC & Chem 7: 04/22/21 14:12 04/22/21 03:13 Labs: Short CBC 04/22/21 04/22/21 Range/Units 00:03 03:13 WBC 22.4 H 18.7 H (4.8-10.8) X10*3/uL Hgb 15.0 13.8 (12.0-16.0) g/dl Hct 46.6 42.2 (37.0-47.0) % Plt Count 232 182 (160-400) X10*3/uL [facility] 04/22/21 04/22/21 00:03 03:13 Sodium 142 140 Potassium 4.0 4.4 Chloride 107 106 Carbon Dioxide 21 L 22 BUN 33 H 29 H Creatinine 0.98 0.84 Calcium 10.0 D 9.3 D Liver Function 04/22/21 Range/Units 00:03 Total Bilirubin 0.3 (0.0-1.0) mg/dL AST 28 (5-31) U/L ALT 31 (0-31) U/L Alkaline Phosphatase 117 (39-117) U/L Albumin 4.4 (3.5-5.0) g/dL Urine 04/22/21 Range/Units 04:55 Urine Color STRAW Urine Appearance CLEAR Urine pH 7.5 (5.0-8.0) Ur Specific [place] 1.010 (1.005-1.025) Urine Protein NEG (NEG-TRACE) MG/DL Urine Glucose (UA) 250 H (NEG) MG/DL Assessment and Plan (1) Abdominal pain: Status: Acute (2) Vomiting: Status: Acute (3) Diarrhea: Status: Acute 66 YF with hypertension and chronic constipation hospitalized at [facility] with sudden onset of nausea, vomiting, abdominal pain and diarrhea without known precipitating factors. Abd CT scan showed no acute findings of the abdomen or pelvis. No obstruction or evidence of ileus or inflammatory change. Mild common bile duct dilatation is similar to prior. No ductal filling defect. Symptoms appeared to have resolved. Patient likely had viral gastroenteritis. 06/08/20 EGD showed gastritis, small bowel biopsies were negative for celiac sprue. Same-day colonoscopy showed moderate diverticulosis in the left colon.? Random biopsies obtained from the TI, right and left colon were normal. RECOMMENDATIONS: 1. Advance diet as tolerated. 2. Pt can be discharged home if she tolerates PO diet without nausea or vomiting. Procedures Date of Service Date of Service: 04/22/21
--- NOTE | 2021-04-22 09:31 | P.DS_ITS ---
DS: Providers Provider Date of Service: 04/22/21 Date of admission: 04/22/21 01:52 Primary care physician: Unknown Physician Consults: 04/22/21 01:52 Consult to Gastroenterology Routine Consulting Provider: Yelena Johnson Reason for consultation: rec abd pain; recent ileitis 04/22/21 01:59 Addiction Medicine Routine Consulting Provider: Federica Day Reason for consultation: pt on methadone DS: Diagnosis Discharge Diagnosis (1) Abdominal pain: Status: Resolved DS: Summary Hospital Course Hospital Course: Chief Complaint: Nausea vomiting 66-year-old female with a past medical history of hypertension, hyperlipidemia, asthma, history of opiate abuse-on methadone presented to the hospital today with chief complaint of nausea and vomiting.? Over the past 1 day she has been having nausea and vomiting-multiple episodes, denies any blood in the vomiting; also complains of abdominal discomfort secondary to vomiting; pain is sharp, diffuse, worsens with vomiting; Patient reported loose stools; denies any blood in the stool.? Patient denies any chest pain palpitations Denies any urinary symptoms.? Review of all other systems is negative except mentioned above ER course: Per ER team patient noted to be a mild diffuse abdominal tenderness; and nausea and vomiting; given IV fluids; CT scan showed no acute intra-abdominal pathology.? Admitted to the hospital for supportive care. Hospital course: patient was observed in the hospital and improved rather rapidly- thought to bepossible mild viral gastroenteritis, her abdominal exam is fairly fine, CT of abdomen of a pelvis show no acute finding, WBC is high intially but improving without fever and likely reactive, urine tox screen is noted for opioid, fentnyl and cocaine. His diet is being avanced-seems tolerated .blood culture @ 24 hours . patient is feeling better , no abd pain , tolerating diet , passing gases , also passed bm last 2 days. she was advised strongly to avoid drug use, currently wants to go home -does not want to wait for control systems specialist. monitor CBC with PCP in 1 make outpatient. Above management discussed with the patient in detail length she understand and in agreement with the above plan, time spent 50 minutes and 50% time spent on counseling. Significant findings: As above. Procedures performed: None. Treatment and response: As above. Complications: None. Time Spent with Patient Time attestation: Total time spent providing and/or coordinating discharge services: Discharge coordination time: Greater than 30 minutes Quality: Stroke Does the patient have a stroke diagnosis?: No Physical Exam Verdana 4l Vital Signs: Verdana 4d Verdana 4d Vital Signs: Verdana 4d Verdana 4Bd Last Vital Signs Verdana 4d Brand Lead New 4d Brand Lead New 4d Temp 98.4 F 04/21/21 23:18 Brand Lead New 4d Pulse 80 04/22/21 04:46 Brand Lead New 4d Resp 16 04/22/21 04:46 BP 141/73 H 04/22/21 04:46 Pulse Ox 98 04/22/21 04:46 BMI result Body Mass Index 33.2 Const: Other: General: AO X 3, no acute distress Resp: CTA bilateral CVS: S1,S2,RRR GI: +BS, NT, no distention Skin: No rash Neuro: motor grossly intact Psych: appropriate affect DS: Data Data Completed and Pending Labs on day of discharge: Laboratory Results - last 24 hr 04/22/21 04/22/21 04/22/21 00:03 00:03 00:03 WBC 22.4 H RBC 5.15 Hgb 15.0 Hct 46.6 MCV 90.5 MCH 29.1 MCHC 32.2 RDW 12.7 Plt Count 232 MPV 10.5 Immature Gran % (Auto) 0.5 H Neut % (Auto) 79.6 H Lymph % (Auto) 12.5 L [place] % (Auto) 5.9 Eos % (Auto) 1.2 Baso % (Auto) 0.3 Lymph # (Auto) 2.8 [place] # (Auto) 1.3 H Eos # (Auto) 0.3 Baso # (Auto) 0.1 Abs Immat Gran (auto) 0.12 H Absolute Neuts (auto) 17.8 H Absolute Nucleated RBC 0.000 Nucleated RBC % (auto) 0.0 Smear Tech's Comments Sodium 142 Potassium 4.0 Chloride 107 Carbon Dioxide 21 L Anion Gap 18 BUN 33 H Creatinine 0.98 Estim Creat Clear Calc 53.2 Estimated GFR 57 Random Glucose 145 H Lactic Acid Lactic Acid F/U @ 2Hr Lactic Acid F/U @ 4Hr Calcium 10.0 D Total Bilirubin 0.3 AST 28 ALT 31 Alkaline Phosphatase 117 Troponin I High Sens < 3.5 Total Protein 7.5 Albumin 4.4 Lipase 22 Urine Color Urine Appearance Urine pH Ur Specific [place] Urine Protein Urine Glucose (UA) Urine Ketones Urine Blood Urine Nitrite Ur Leukocyte Esterase Urine RBC Urine WBC Ur Squamous Epith Cells Urine Bacteria Urine Opiates Screen Urine Fentanyl Screen Ur Barbiturates Screen Ur Phencyclidine Scrn Ur Amphetamines Screen U Benzodiazepines Scrn Urine Cocaine Screen U Marijuana (THC) Screen Ethyl Alcohol Influenza Type A (PCR) Influenza Type B (PCR) RSV RNA Qual (PCR) SARS-CoV-2 RNA (RT-PCR) 04/22/21 04/22/21 04/22/21 00:03 00:36 00:36 WBC RBC Hgb Hct MCV MCH MCHC RDW Plt Count MPV Immature Gran % (Auto) Neut % (Auto) Lymph % (Auto) [place] % (Auto) Eos % (Auto) Baso % (Auto) Lymph # (Auto) [place] # (Auto) Eos # (Auto) Baso # (Auto) Abs Immat Gran (auto) Absolute Neuts (auto) Absolute Nucleated RBC Nucleated RBC % (auto) Smear Tech's Comments Sodium Potassium Chloride Carbon Dioxide Anion Gap BUN Creatinine Estim Creat Clear Calc Estimated GFR Random Glucose Lactic Acid 3.1 H* Lactic Acid F/U @ 2Hr Lactic Acid F/U @ 4Hr Calcium Total Bilirubin AST ALT Alkaline Phosphatase Troponin I High Sens Total Protein Albumin Lipase Urine Color Urine Appearance Urine pH Ur Specific [place] Urine Protein Urine Glucose (UA) Urine Ketones Urine Blood Urine Nitrite Ur Leukocyte Esterase Urine RBC Urine WBC Ur Squamous Epith Cells Urine Bacteria Urine Opiates Screen Urine Fentanyl Screen Ur Barbiturates Screen Ur Phencyclidine Scrn Ur Amphetamines Screen U Benzodiazepines Scrn Urine Cocaine Screen U Marijuana (THC) Screen Ethyl Alcohol < 10 Influenza Type A (PCR) NEGATIVE Influenza Type B (PCR) NEGATIVE RSV RNA Qual (PCR) NEGATIVE SARS-CoV-2 RNA (RT-PCR) NEGATIVE 04/22/21 04/22/21 04/22/21 00:36 03:13 03:13 WBC 18.7 H RBC 4.73 Hgb 13.8 Hct 42.2 MCV 89.2 MCH 29.2 MCHC 32.7 RDW 12.6 Plt Count 182 MPV 10.2 Immature Gran % (Auto) 0.3 Neut % (Auto) 90.5 H Lymph % (Auto) 6.0 L [place] % (Auto) 2.9 Eos % (Auto) 0.1 Baso % (Auto) 0.2 Lymph # (Auto) 1.1 L [place] # (Auto) 0.5 Eos # (Auto) 0.0 Baso # (Auto) 0.0 Abs Immat Gran (auto) 0.06 H Absolute Neuts (auto) 17.0 H Absolute Nucleated RBC 0.000 Nucleated RBC % (auto) 0.0 Smear Tech's Comments VERIFIED Sodium 140 Potassium 4.4 Chloride 106 Carbon Dioxide 22 Anion Gap 16 BUN 29 H Creatinine 0.84 Estim Creat Clear Calc 62.1 Estimated GFR > 60 Random Glucose 123 H Lactic Acid Lactic Acid F/U @ 2Hr Lactic Acid F/U @ 4Hr Calcium 9.3 D Total Bilirubin AST ALT Alkaline Phosphatase Troponin I High Sens Total Protein Albumin Lipase 19 Urine Color Urine Appearance Urine pH Ur Specific [place] Urine Protein Urine Glucose (UA) Urine Ketones Urine Blood Urine Nitrite Ur Leukocyte Esterase Urine RBC Urine WBC Ur Squamous Epith Cells Urine Bacteria Urine Opiates Screen Urine Fentanyl Screen Ur Barbiturates Screen Ur Phencyclidine Scrn Ur Amphetamines Screen U Benzodiazepines Scrn Urine Cocaine Screen U Marijuana (THC) Screen Ethyl Alcohol Influenza Type A (PCR) Influenza Type B (PCR) RSV RNA Qual (PCR) SARS-CoV-2 RNA (RT-PCR) 04/22/21 04/22/21 04/22/21 03:13 04:55 04:55 WBC RBC Hgb Hct MCV MCH MCHC RDW Plt Count MPV Immature Gran % (Auto) Neut % (Auto) Lymph % (Auto) [place] % (Auto) Eos % (Auto) Baso % (Auto) Lymph # (Auto) [place] # (Auto) Eos # (Auto) Baso # (Auto) Abs Immat Gran (auto) Absolute Neuts (auto) Absolute Nucleated RBC Nucleated RBC % (auto) Smear Tech's Comments Sodium Potassium Chloride Carbon Dioxide Anion Gap BUN Creatinine Estim Creat Clear Calc Estimated GFR Random Glucose Lactic Acid Lactic Acid F/U @ 2Hr 2.9 H* Lactic Acid F/U @ 4Hr Calcium Total Bilirubin AST ALT Alkaline Phosphatase Troponin I High Sens Total Protein Albumin Lipase Urine Color STRAW Urine Appearance CLEAR Urine pH 7.5 Ur Specific [place] 1.010 Urine Protein NEG Urine Glucose (UA) 250 H Urine Ketones NEG Urine Blood TRACE Urine Nitrite NEG Ur Leukocyte Esterase NEG Urine RBC 1-4 Urine WBC 0-2 Ur Squamous Epith Cells TRACE Urine Bacteria NONE Urine Opiates Screen POSITIVE H Urine Fentanyl Screen POSITIVE H Ur Barbiturates Screen Not Detected Ur Phencyclidine Scrn Not Detected Ur Amphetamines Screen Not Detected U Benzodiazepines Scrn Not Detected Urine Cocaine Screen POSITIVE H U Marijuana (THC) Screen Not Detected Ethyl Alcohol Influenza Type A (PCR) Influenza Type B (PCR) RSV RNA Qual (PCR) SARS-CoV-2 RNA (RT-PCR) 04/22/21 05:36 WBC RBC Hgb Hct MCV MCH MCHC RDW Plt Count MPV Immature Gran % (Auto) Neut % (Auto) Lymph % (Auto) [place] % (Auto) Eos % (Auto) Baso % (Auto) Lymph # (Auto) [place] # (Auto) Eos # (Auto) Baso # (Auto) Abs Immat Gran (auto) Absolute Neuts (auto) Absolute Nucleated RBC Nucleated RBC % (auto) Smear Tech's Comments Sodium Potassium Chloride Carbon Dioxide Anion Gap BUN Creatinine Estim Creat Clear Calc Estimated GFR Random Glucose Lactic Acid Lactic Acid F/U @ 2Hr Lactic Acid F/U @ 4Hr 3.4 H* Calcium Total Bilirubin AST ALT Alkaline Phosphatase Troponin I High Sens Total Protein Albumin Lipase Urine Color Urine Appearance Urine pH Ur Specific [place] Urine Protein Urine Glucose (UA) Urine Ketones Urine Blood Urine Nitrite Ur Leukocyte Esterase Urine RBC Urine WBC Ur Squamous Epith Cells Urine Bacteria Urine Opiates Screen Urine Fentanyl Screen Ur Barbiturates Screen Ur Phencyclidine Scrn Ur Amphetamines Screen U Benzodiazepines Scrn Urine Cocaine Screen U Marijuana (THC) Screen Ethyl Alcohol Influenza Type A (PCR) Influenza Type B (PCR) RSV RNA Qual (PCR) SARS-CoV-2 RNA (RT-PCR) Discharge Plan Discharge Patient Disposition: Home, Self-Care Discharge Diagnosis: Gastrointeritis Referrals: Physician,Unknown J [Primary Care Provider] - 1 Week Discharge Medications: New sennosides [Senna Lax] 8.6 mg Tablet 17.2 mg PO BEDTIME PRN (Reason: Constipation) Qty: 20 0RF docusate sodium [Colace] 100 mg capsule 100 mg PO DAILY PRN (Reason: constipation) Qty: 30 0RF Continued atorvastatin 20 mg tablet 1 tab PO DAILY 0RF lisinopril 10 mg tablet 1 tab PO DAILY 0RF fluticasone propionate 50 mcg/actuation spray,suspension 1 spray intranasal DAILY PRN (Reason: Allergic Symptoms) 0RF methadone 10 mg/mL Concentrate 33 mg PO DAILY 0RF Rx Instructions: clinic: [facility] Discharge Orders: Discharge Order (Routine); Ordered 04/23/21 Ordered By: Jens Sierra Diet: advance to usual diet, diabetic diet and low fat, low cholesterol Activity on Discharge: As tolerated Stand Alone Forms: Patient Portal Discharge page Care Plan Goals: full recover for gi symptoms, Please come to the nearest emergency room in case patient started having fever abdominal pain diarrhea any new symptoms. Monitor CBC in 1 week outpatient with PCP. she was advised strongly to avoid drug use, currently wants to go home . Health Concerns: nausea vomiting abdominal pain, substance abuse Plan of Treatment: drink plenty of fluid avoid illicit substance use, follow-up with your primary care doctor, call for appointment. Assessment: As above Discharge Date/Time: 04/23/21 16:41
--- NOTE | 2021-04-22 09:44 | PHA.MEDREC ---
Pharmacy Consult ? Medication Reconciliation Pharmacy has completed the medication reconciliation. Spoke with patient in ED.
[2021-04-22] MEDS: 0.9 % Sodium Chloride Flush 3 ML SYRINGE IVFLUSH (10:03)
[2021-04-22 10:05] VITALS: BP 109/58; PULSE 61; RESP 16; O2SAT 96
--- NOTE | 2021-04-22 13:13 | MHC.RECOVRN ---
Met with pt after attempting verify OTP. It had been noted pt received methadone from [facility] in [place], however, the OTP does not have a record of patient. Pt reports receiving take home bottles (13) from [facility] in [place]. Pts is bringing in methadone bottles. Pts RN aware.
--- NOTE | 2021-04-22 13:33 | PC.NURSE ---
No acute vomiting/pain at this time, awaits bed assgn. Pt son to bring in locked Methadone from home. +bowel sounds x 4 quads, bd soft, nontender
[2021-04-22 14:19] LABS: Hematocrit 41.5 % (37.0-47.0); Hemoglobin 13.8 g/dl (12.0-16.0); Mean Corpuscular HGB Conc 33.3 g/dl (31.0-35.0); Mean Corpuscular Hemoglobin 29.3 pg (27.0-33.0); Mean Corpuscular Volume 88.1 fL (80.0-98.0); Mean Platelet Volume 10.6 fL (9.4-12.3); Platelet Count 208 X10*3/uL (160-400); Red Blood Count 4.71 X10*6/uL (4.20-5.50); Red Cell Distribution Width 12.6 % (11.0-16.0); White Blood Count 13.3 X10*3/uL (4.8-10.8)
[2021-04-22] MEDS: methADONE HCl 20 MG/2 ML ORAL.CONC 33 MG PO (14:24)
--- NOTE | 2021-04-22 14:38 | MHC.CM.PN ---
CM MET WITH PT IN ED O2 PT REPORTS SHE LIVES WITH HER S/O AND IS INDEPENDENT AND WORKS PT DENIES USE OF DME OR HOME/COMMUNITY SERVICES PT REPORTS HER PCP IS AT [facility] IN [place] PT HAS A HCP ON FILE CURRENT DC PLAN IS HOME WITH NO SERVICES PT WILL ARRANGE TRANSPORT
[2021-04-22 16:36] VITALS: BP 123/69; PULSE 58; RESP 16; TEMP 36.8; O2SAT 96
[2021-04-22 17:37] VITALS: BP 112/55; PULSE 60; RESP 16; TEMP 36.3; O2SAT 97
--- NOTE | 2021-04-22 18:41 | PC.NURSE ---
Rec'd pt from main ED at 1730, pt ambulated to bed independently, A&Ox3, asking for fluids, water pitcher provided at this time, NSR on monitor. No complaints, awaiting bed assignment, will continue to monitor.
--- NOTE | 2021-04-22 19:27 | PC.NURSE ---
Assumed care of pt at 1900. Pt resting in bed, in NAD, call light at hand, denies needs at this time. Educated to call for assistance
[2021-04-22 20:15] VITALS: BP 119/59; PULSE 57; RESP 13; TEMP 37.2; O2SAT 98
[2021-04-23 00:17] VITALS: PULSE 71; RESP 15
[2021-04-23 04:00] VITALS: PULSE 65; RESP 20
[2021-04-23 05:11] VITALS: BP 156/72; PULSE 72; RESP 14; O2SAT 97
[2021-04-23] MEDS: Acetaminophen 325 MG TABLET 650 MG PO (05:15)
--- NOTE | 2021-04-23 09:01 | PC.NURSE ---
Pharmacy called, states they have no methadone verification form on file nor do they have the bottles of methadone at this time.
[2021-04-23 10:13] VITALS: BP 142/75; PULSE 60; RESP 14; O2SAT 96
--- NOTE | 2021-04-23 10:40 | PC.NURSE ---
Pt offers no complaints, stating she would like to go home at this time. MD Sierra notified.
--- NOTE | 2021-04-23 11:45 | PM.DS ---
DS: Providers Provider Date of Service: 04/23/21 Date of admission: 04/22/21 01:52 Primary care physician: Unknown Physician Consults: 04/22/21 01:52 Consult to Gastroenterology Routine Consulting Provider: Yelena Johnson Reason for consultation: rec abd pain; recent ileitis 04/22/21 01:59 Addiction Medicine Routine Consulting Provider: Federica Day Reason for consultation: pt on methadone DS: Diagnosis Discharge Diagnosis (1) Abdominal pain: Status: Acute (2) Vomiting: Status: Acute (3) Diarrhea: Status: Acute DS: Summary Hospital Course Hospital Course: Chief Complaint: Nausea vomiting 66-year-old female with a past medical history of hypertension, hyperlipidemia, asthma, history of opiate abuse-on methadone presented to the hospital today with chief complaint of nausea and vomiting.? Over the past 1 day she has been having nausea and vomiting-multiple episodes, denies any blood in the vomiting; also complains of abdominal discomfort secondary to vomiting; pain is sharp, diffuse, worsens with vomiting; Patient reported loose stools; denies any blood in the stool.? Patient denies any chest pain palpitations Denies any urinary symptoms.? Review of all other systems is negative except mentioned above ER course: Per ER team patient noted to be a mild diffuse abdominal tenderness; and nausea and vomiting; given IV fluids; CT scan showed no acute intra-abdominal pathology.? Admitted to the hospital for supportive care. Hospital course: patient was observed in the hospital and improved rather rapidly- thought to bepossible mild viral gastroenteritis, her abdominal exam is fairly fine, CT of abdomen of a pelvis show no acute finding, WBC is high intially but improving without fever and likely reactive, urine tox screen is noted for opioid, fentnyl and cocaine. His diet is being avanced-seems tolerated .blood culture @ 24 hours . patient is feeling better , no abd pain , tolerating diet , passing gases , also passed bm last 2 days. 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 monitor CBC with PCP in 1 make outpatient. Above management discussed with the patient in detail length she understand and in agreement with the above plan, time spent 50 minutes and 50% time spent on counseling. Significant findings: As above. Procedures performed: None. Treatment and response: As above. Complications: None. Time Spent with Patient Time attestation: Total time spent providing and/or coordinating discharge services: Discharge coordination time: Greater than 30 minutes Quality: Stroke Does the patient have a stroke diagnosis?: No Physical Exam Vital Signs: Vital Signs: Last Vital Signs Temp 98.9 F 04/22/21 20:15 Pulse 60 04/23/21 10:13 Resp 14 04/23/21 10:13 BP 142/75 H 04/23/21 10:13 Pulse Ox 96 04/23/21 10:13 BMI result Body Mass Index 33.2 Physical exam: Appearance: Alert.? Oriented X3.? not in distress.? Eyes: Pupils equal, round and reactive to light.? Sclera nonicteric.? ENT: Pharynx normal.? Moist mucous membranes. cvs: rrr, [id number] , no murmur res: clear to auscultation ,no rhonchii or wheezing abd: no rebound or guarding ,nt, bs present. ext pulses present , no cyanosis . neuro: axo3 , nonfocal. DS: Data Data Completed and Pending Labs on day of discharge: Laboratory Results - last 24 hr 04/22/21 14:12 WBC 13.3 H RBC 4.71 Hgb 13.8 Hct 41.5 MCV 88.1 MCH 29.3 MCHC 33.3 RDW 12.6 Plt Count 208 MPV 10.6 Absolute Nucleated RBC 0.000 Nucleated RBC % (auto) 0.0 Preliminary micro results at discharge 04/22/21 03:23 Blood Culture - Preliminary Blood - Venous No growth after 24 hours. 04/22/21 03:23 Blood Culture - Preliminary Blood - Venous No growth after 24 hours. Additional Comments Additional comments: ?CT/CT abdomen pelvis w con IMPRESSION: No acute findings of the abdomen or pelvis. No obstruction or evidence of ileus. No inflammatory change. ? Mild common bile duct dilatation is similar to prior. No ductal filling defect.? ? Fleischner guidelines were followed. Discharge Plan Discharge Patient Disposition: Home, Self-Care Discharge Diagnosis: Gastrointeritis Referrals: Physician,Unknown J [Primary Care Provider] - 1 Week Discharge Medications: New sennosides [Senna Lax] 8.6 mg Tablet 17.2 mg PO BEDTIME PRN (Reason: Constipation) Qty: 20 RF: 0 docusate sodium [Colace] 100 mg capsule 100 mg PO DAILY PRN (Reason: constipation) Qty: 30 RF: 0 Continued atorvastatin 20 mg tablet 1 tab PO DAILY RF: 0 lisinopril 10 mg tablet 1 tab PO DAILY RF: 0 fluticasone propionate 50 mcg/actuation spray,suspension 1 spray intranasal DAILY PRN (Reason: Allergic Symptoms) RF: 0 methadone 10 mg/mL Concentrate 33 mg PO DAILY RF: 0 Discharge Orders: Discharge Order (Routine); Ordered 04/23/21 Ordered By: Jens Sierra Diet: advance to usual diet, diabetic diet and low fat, low cholesterol Activity on Discharge: As tolerated Stand Alone Forms: Patient Portal Discharge page Care Plan Goals: full recover for gi symptoms, Please come to the nearest emergency room in case patient started having fever abdominal pain diarrhea any new symptoms. Monitor CBC in 1 week outpatient with PCP. she was advised strongly to avoid drug use, currently wants to go home . Health Concerns: nausea vomiting abdominal pain, substance abuse Plan of Treatment: drink plenty of fluid avoid illicit substance use, follow-up with your primary care doctor, call for appointment. Assessment: As above
--- NOTE | 2021-04-23 12:09 | PC.NURSE ---
Pt D/C from ED overflow. Pt states understanding with instructions and denies any further questions. Pt pending ride back home.
--- NOTE | 2021-04-23 12:11 | MHC.CM.PN ---
Met with pt to review d/c plans: pt states she will contact her spouse to transport her home: no services needed.
--- NOTE | 2021-04-23 13:04 | PC.NURSE ---
As per MD Sierra's request, Federica Day contacted for pt's consultation r/t opiate abuse. However pt already d/c and left at that time.
== END 2021-04-23 16:41 | disposition home or self-care (01) | DRG 392 ==
LOC: HO.ED 04-22 01:32 → HO.EDOVER 04-22 01:57
PROVIDERS: Internal Medicine; Admitting Provider Hospitalist; Emergency Provider Emergency Medicine Emergency Medical Services; Visit Provider Internal Medicine
DX: K52.9 Noninfective gastroenteritis and colitis, unspecified (principal); F11.20 Opioid dependence, uncomplicated; E86.0 Dehydration; J45.909 Unspecified asthma, uncomplicated; E78.5 Hyperlipidemia, unspecified; K59.09 Other constipation; Z20.822 Contact with and (suspected) exposure to COVID-19; Z79.51 Long term (current) use of inhaled steroids; Z79.899 Other long term (current) drug therapy
CPT/HCPCS: 0241U; 36415; 74177; 80048; 80053; 80307; 81001; 81003; 82077; 83605; 83690; 84484; 85025; 85027; 87040; 93005; 99285; J0696; J1885; J2405; J2543; Q9967

== ENCOUNTER 2022-02-24 23:13 | Emergency (ER) | payer OTHER, SELFPAY ==
[2022-02-24 23:33] VITALS: BP 172/82; PULSE 78; RESP 20; TEMP 36.1; O2SAT 98; BMI 32.0
--- NOTE | 2022-02-25 00:59 | ED_ITS ---
HPI - Abdominal Pain General Chief Complaint: Abdominal Pain Stated Complaint: vomiting Time Seen by Provider: 02/25/22 00:59 Source: patient Mode of arrival: ambulatory Limitations: no limitations History of Present Illness HPI narrative: Patient is 66 years old history of hypertension high cholesterol comes here for epigastric pain with multiple vomiting episodes since 19:00 with 3 loose bowels no recent travel or bad food intake had similar episode a year ago with CT scan was negative pain stays in the epigastric area does not radiate back or lower abdomen no fever no chills no urine complaints no history of kidney stone no stone gallstones no history of alcohol intake Related Data Home Medications Medication Instructions Recorded Confirmed atorvastatin 20 mg tablet 1 tab PO DAILY 04/16/20 04/22/21 lisinopril 10 mg tablet 1 tab PO DAILY 04/16/20 04/22/21 fluticasone propionate 50 1 spray intranasal DAILY PRN 06/04/20 04/22/21 mcg/actuation nasal Allergic Symptoms spray,suspension methadone 10 mg/mL oral concentrate 33 mg PO DAILY 04/22/21 04/22/21 Previous Rx's Medication Instructions Recorded docusate sodium 100 mg capsule 100 mg PO DAILY PRN constipation 04/23/21 (Colace) #30 caps sennosides 8.6 mg tablet (Senna 17.2 mg PO BEDTIME PRN 04/23/21 Lax) Constipation #20 tabs Allergies Allergy/AdvReac Type Severity Reaction Status Date / Time codeine [CODEINE] AdvReac Severe VOMITING Verified 02/24/22 23:38 FOR DAYS Review of Systems Review of Systems Yes all other systems are reviewed and are negative PMFSH Past Medical History Medical History Asthma High cholesterol HTN (hypertension) Hx of opioid abuse Surgical History History of colonoscopy History of esophagogastroduodenoscopy (EGD) Hx of knee surgery Family History Family History Father History of stomach cancer Mother Hx of type 2 diabetes mellitus Hx of angina pectoris Breast cancer Diabetes Family/Other Diabetes Social History Social History Household Members: Significant Other Housing: Apartment Do you presently have visiting nurse or other home services: No Alcohol intake: never Patient Tobacco Use Status: Never used Tobacco Second Hand Smoke Exposure: No service: No Current occupational status: employed Physical Exam ED Vital Signs: Vital Signs - 24 hr 02/24/22 23:33 Temperature 97 F Pulse Rate 78 Respiratory Rate 20 Blood Pressure 172/82 H Pulse Oximetry 98 Oxygen Delivery Method Room Air BMI result Body Mass Index 32.0 Appearance: Alert. Oriented X3. In moderate distress Eyes: PERRLA, No Nystagmus ENT: Pharynx normal. Oral Mucosa moist Neck: Normal inspection. Neck supple. CVS: Normal heart rate and rhythm. Pulses normal. Respiratory: No respiratory distress. Equal air entry bilateral, no wheezing/rales/rhonchi Abdomen: Soft, epigastric tenderness++ Bowel sounds are present, no mass palpable, no CVA tenderness Skin: Skin warm and dry. Normal skin color. Normal skin turgor. Extremities: No lower extremity edema. No calf tenderness Neuro: Oriented X 3. No motor deficit. MDM - Abdominal Pain Differential Diagnosis Differential diagnosis: Likely abdominal pain, gastroenteritis and pancreatitis Lab Data Result diagrams: 02/25/22 01:38 02/25/22 01:38 Labs: Lab Results 02/25/22 Range/Units 01:21 COVID-19 ([facility]) Negative (Negative) COVID-19 Clin Com See Note Discharge Plan Discharge Clinical Impression: Gastroenteritis Patient Disposition: Still a Patient Prescriptions: No Action atorvastatin 20 mg tablet 1 tab PO DAILY lisinopril 10 mg tablet 1 tab PO DAILY fluticasone propionate 50 mcg/actuation spray,suspension 1 spray intranasal DAILY PRN (Reason: Allergic Symptoms) methadone 10 mg/mL Concentrate 33 mg PO DAILY Rx Instructions: clinic: [facility] [place] sennosides [Senna Lax] 8.6 mg Tablet 17.2 mg PO BEDTIME PRN (Reason: Constipation) Qty: 20 0RF docusate sodium [Colace] 100 mg capsule 100 mg PO DAILY PRN (Reason: constipation) Qty: 30 0RF
--- NOTE | 2022-02-25 01:08 | ECG_ITS ---
Test Reason : abd pain Blood Pressure : / mmHG Vent. Rate : 066 BPM Atrial Rate : 076 BPM P-R Int : 144 ms QRS Dur : 098 ms QT Int : 420 ms P-R-T Axes : 061 033 027 degrees QTc Int : 440 ms Sinus rhythm with marked sinus arrhythmia Incomplete right bundle branch block Borderline ECG When compared with ECG of 22-APR-2021 00:16, No significant change was found Referred By: Gregorio Ramon Electronically Signed By:AURE ANDUJAR MD
[2022-02-25] MEDS: Famotidine/PF 20 MG/2 ML VIAL IVPUSH (01:41)
[2022-02-25] MEDS: 0.9 % Sodium Chloride 1,000 ML 999 ML IV (01:41)
[2022-02-25] MEDS: ondansetron HCL 4 MG/2 ML VIAL IVPUSH (01:41)
[2022-02-25] MEDS: Morphine Sulfate 4 MG/ML CARTRIDGE IVPUSH (01:41)
[2022-02-25 01:43] LABS: COVID-19 Test Negative (Negative); IDNOW Serial# 16C4AD1C
[2022-02-25 01:44] LABS: MANUAL DIFF FLAG NO
[2022-02-25 01:45] LABS: Basophils Percent Auto 0.3 % (0-2); Eosinophils Percent Auto 0.1 % (0-4); Hematocrit 39.5 % (37.0-47.0); Hemoglobin 13.1 g/dl (12.0-16.0); Imm Gran Abs Auto 0.04 X10*3/uL (0.00-0.03); Imm Gran Pct Auto 0.3 % (0.0-0.4); Lymphocytes Absolute Auto 1.2 X10*3/uL (1.2-4.9); Lymphocytes Percent Auto 9.2 % (20-40); Mean Corpuscular HGB Conc 33.2 g/dl (31.0-35.0); Mean Corpuscular Hemoglobin 28.5 pg (27.0-33.0); Mean Corpuscular Volume 85.9 fL (80.0-98.0); Mean Platelet Volume 10.7 fL (9.4-12.3); Monocytes Absolute Auto 0.3 X10*3/uL (0.1-1.2); Monocytes Percent Auto 2.5 % (2-11); Neutrophils Absolute Auto 11.5 x10*3/uL (2.0-8.3); Neutrophils Percent Auto 87.6 % (45-73); Platelet Count 211 X10*3/uL (160-400); Red Cell Distribution Width 12.4 % (11.0-16.0); White Blood Count 13.1 X10*3/uL (4.8-10.8)
[2022-02-25 01:56] LABS: Lactic Acid 1.3 mmol/L (0.5-2.0)
[2022-02-25 02:04] LABS: Alanine Aminotransferase 19 U/L (0-31); Albumin Level 4.1 g/dL (3.5-5.0); Alkaline Phosphatase 102 U/L (39-117); Anion Gap 16 (12-20); Aspartate Amino Transferase 19 U/L (5-31); Bilirubin Total 0.2 mg/dL (0.0-1.0); Blood Urea Nitrogen 34 mg/dL (9-16); Calcium 9.4 mg/dL (8.4-10.2); Carbon Dioxide 27 mmol/L (22-29); Chloride 103 mmol/L (96-108); Creatinine Clr Calc Pharmacy 66.5; Estimated Glomerular Filt Rate > 60; Glucose Random 178 mg/dL (60-115); Lipase 16 U/L (8-78); Potassium 3.9 mmol/L (3.3-5.1); Sodium 142 mmol/L (135-145); Total Protein 6.6 g/dL (6.5-8.0)
[2022-02-25 02:06] LABS: Troponin-I High Sensitivity < 3.5 ng/L (<3.5-17.0)
[2022-02-25 02:31] VITALS: BP 121/68; PULSE 69; RESP 18; TEMP 37.2; O2SAT 98
[2022-02-25 02:54] LABS: Appearance Urine Cloudy; Color Urine Yellow; Glucose Urine UA Negative (Negative); Leukocyte Esterase Urine Negative (Negative); Nitrite Urine Negative (Negative); PH >= 9.0 (5.0-9.0); Urine Blood Negative (Negative); Urine Ketones Negative (Negative); Urine Protein Negative (Neg-Trace)
[2022-02-25] MEDS: Prochlorperazine Edisylate 10 MG/2 ML VIAL IVPUSH (04:53)
[2022-02-25 05:27] VITALS: BP 176/84; PULSE 75; RESP 16; TEMP 36.9; O2SAT 98
== END 2022-02-25 05:38 | disposition home or self-care (01) ==
PROVIDERS: Emergency Provider Internal Medicine
DX: K52.9 Noninfective gastroenteritis and colitis, unspecified (principal); Z20.822 Contact with and (suspected) exposure to COVID-19; R10.13 Epigastric pain; I10 Essential (primary) hypertension; E78.5 Hyperlipidemia, unspecified; F11.20 Opioid dependence, uncomplicated; Z79.02 Long term (current) use of antithrombotics/antiplatelets; Z79.899 Other long term (current) drug therapy
CPT/HCPCS: 80053; 81003; 83605; 83690; 84484; 85025; 87635; 93005; 96374; 96375; 99284; J2270; J2405

== ENCOUNTER 2022-03-27 11:22 | Outpatient (REF) | payer OTHER, SELFPAY ==
[2022-03-27 11:33] LABS: MANUAL DIFF FLAG NO
[2022-03-27 11:48] LABS: Basophils Absolute Auto 0.1 X10*3/uL (0.0-0.2); Basophils Percent Auto 0.8 % (0-2); Eosinophils Absolute Auto 0.2 X10*3/uL (0.0-0.4); Eosinophils Percent Auto 3.2 % (0-4); Hematocrit 40.3 % (37.0-47.0); Hemoglobin 13.5 g/dl (12.0-16.0); Imm Gran Abs Auto 0.03 X10*3/uL (0.00-0.03); Imm Gran Pct Auto 0.4 % (0.0-0.4); Lymphocytes Absolute Auto 2.5 X10*3/uL (1.2-4.9); Lymphocytes Percent Auto 32.8 % (20-40); Mean Corpuscular HGB Conc 33.5 g/dl (31.0-35.0); Mean Corpuscular Hemoglobin 28.8 pg (27.0-33.0); Mean Corpuscular Volume 86.1 fL (80.0-98.0); Mean Platelet Volume 10.1 fL (9.4-12.3); Monocytes Absolute Auto 0.6 X10*3/uL (0.1-1.2); Monocytes Percent Auto 8.5 % (2-11); Neutrophils Absolute Auto 4.1 x10*3/uL (2.0-8.3); Neutrophils Percent Auto 54.3 % (45-73); Platelet Count 263 X10*3/uL (160-400); Red Blood Count 4.68 X10*6/uL (4.20-5.50); Red Cell Distribution Width 12.8 % (11.0-16.0); White Blood Count 7.6 X10*3/uL (4.8-10.8)
[2022-03-27 12:12] LABS: C Reactive Protein 0.27 mg/dL (< or = 0.50)
[2022-03-27 12:34] LABS: TSH reflex Free T4 1.97 uIU/mL (0.32-4.0); Vitamin D 25-OH Total 17.3 ng/mL (>30)
[2022-03-27 12:51] LABS: Folate 15.7 ng/mL (> or = 4.0); Vitamin B12 788 pg/mL (200-900)
== END 2022-03-27 11:23 | disposition home or self-care (01) ==
LOC: HO.LAB 11:22
PROVIDERS: PCP Internal Medicine; Visit Provider Internal Medicine Gastroenterology
DX: R14.0 Abdominal distension (gaseous) (principal)
CPT/HCPCS: 36415; 82306; 82607; 82746; 84443; 85025; 86140

== ENCOUNTER 2022-11-20 10:52 | Outpatient (AMB) | payer OTHER, SELFPAY ==
--- NOTE | 2022-11-20 10:56 | A.OFFVIS_ITS ---
Intake Vital Signs 11/20/22 11:00 Height 5 ft Weight 165 lb BMI 32.2 BP 131/70 Blood Pressure Location Lt brachial Position Sitting Pulse 72 Intake Visit Reasons: 4 month follow up Intake Note: Patient 4 month follow up for abdominal bloating, and lab results. Patient cc: abdominal bloating and denies any other GI issues. Commissioning Editor Required: No Accompanied by: Self / Same As Patient Allergies codeine [CODEINE] Adverse Reaction (Severe, Verified 11/20/22 10:56) VOMITING FOR DAYS Medication List - Last Reconciled 11/20/22 by Yelena Johnson MD atorvastatin 1 tab PO DAILY fluticasone propionate 50 mcg/actuation 1 spray intranasal DAILY PRN lisinopril 1 tab PO DAILY methadone 31 mg PO DAILY simethicone (Gas Relief (simethicone)) 125 mg PO BID-QID PRN 30 days HPI 4 month follow up HPI Details GI CLINIC VISIT FOR THIS 67-YEAR-OLD FEMALE FOR FOLLOW-UP OF GERD. Pt was seen at [facility] [place] on 02/25/22 with abd pain nausea and vomiting: Blood cell count is 13.3, chronically elevated, no significant lab abnormalities that need to be corrected at this time. Patient otherwise feeling well, no abdominal pain, patient ready for discharge IMAGING STUDIES:? 04/16/[address] SCAN SHOWED: Stable prominence of the common hepatic and common bile duct. ? Small amount of free fluid within the pelvis with question nondilated but thick-walled loop of ileum with some stranding within the mesentery. This may possibly represent ileitis but is a soft finding. No evidence of ileus or obstruction. ? No evidence of obstructive uropathy. ENDOSCOPIC STUDIES: 06/08/20 EGD AND COLONOSCOPY SHOWED: Endoscopy Findings:? STOMACH: Mild gastritis DUODENUM: Normal - bxed to check for celiac sprue. Colonoscopy Findings:? no polyps were detected. random biopsies were obtained from the TI, right and left colon to check for IBD/Crohn's disease. Moderate diverticulosis seen in the left colon Plan:? Patient has an appointment on 06/18/20 in the GI Clinic with Yelena Johnson M.D. Repeat Colonoscopy interval based on path results - in 5 years if biopsies are normal. Above findings were reviewed with the patient and Gastritis and diverticulosis handouts were given in the discharge area BIOPSIES SHOWED: B.? Stomach, antrum, biopsy:? Gastric antral mucosa with mild reactive gastropathy; negative for Helicobacter pylori, intestinal metaplasia and dysplasia. C. Terminal ileum, biopsy:? Ileal mucosa within normal limits; negative for active or chronic ileitis. D.? Colon, right side, biopsy:? Colonic mucosa within normal limits; negative for active, chronic or microscopic colitis. E.? Colon, left side, biopsy:? Colonic mucosa within normal limits; negative for active, chronic or microscopic colitis. TODAY'S VISIT: my stomach has been behaving Keeping away fron dairy and taking the gas tablets Drinking Life water with electrolytes and staying regular. Having a BM every day. PAST VISIT: Continues to have abdominal bloating and has been missing work once a month. Notes bloating after she takes coffee, broccoli and milk products - has been taking Lactaid. Started drinkng Life Water with electrolytes and has not had trouble with constipation. Has cut out meats due to nausea. Has a BM every other day without straining. Gets constipated if she does not drink water. Continues to feel gassy and bloated with occasional nausea. Sudden onset of abdominal pain, chills, nausea and vomiting. Similar episode in October, - hospitalized after 3 days of symptoms for 7 days Notes nausea after eating, a lot of gas and bloating. Notes stomach pressure/dull pain if she does not eat for a few hrs. Occasional heartburn. Patient denies symptoms of dysphagia, vomiting. Denies recent change in bowel habits, diarrhea, black stools or rectal bleeding. Tends to be constipated due to Methadone.- has a BM daily to every other day. Denies taking any medication for constipation. She recalls being constipated for a week prior to onset of symptoms. Patient denies major cardiac or pulmonary problems, loud snoring or sleep apnea Denies problems with anesthesia in the past. Denies being on chronic anticoagulation. Patient denies known family history of IBD, celiac disease, colon polyps, colon cancer or other GI malignancies. Father of stomach cancer at age 76 yrs PAST EGD/COLONOSCOPY:??Colonoscopy 8 yrs ago at [facility] - a few small polyps were removed. Does not recall having an EGD in the past. PAST GI HISTORY BY REVIEW OF MEDICAL RECORDS: 04/16/20 PATIENT WAS HOSPITALIZED AT [facility]: A 65-year-old woman presenting to the ER with complaints of worsening abdominal pain, bloating, distention, and gas over the last 2 days.? She reported also some cramping, vomiting, and diarrhea.? She reported some chills without fever. ?She reported she had a similar episode like this in 2019, which seemed to be related to a viral gastroenteritis.? She denied any improperly cooked foods or exposure to anyone with any gastrointestinal issues.? She was noted to have an elevated white blood cell count of 17.3.? No fever.? She did receive PPI, IV fluid, promethazine, ceftriaxone, Flagyl, Levaquin.? She will be admitted for further management and treatment of gastroenteritis versus ileitis. ASSESSMENT AND PLAN: A 65-year-old woman, who is being admitted with abdominal pain, nausea and vomiting.? She reported that she had taken 2 Excedrin for headache yesterday, but has not been overly taking any NSAIDs.? She reported her pain more at the mouth of the stomach which may be more related to gastroenteritis.? Abdominal CT shows possible less likely ileitis.? She also has some diarrhea, so differential diagnosis could include C diff as well. 1. Gastroenteritis.? We will treat with PPI, antiemetics, IV fluids, GI consultation.? We will also check stool studies and C diff due to diarrhea.? We will hold off on antibiotics for now.? She did receive several doses in the ER. 2. Leukocytosis.? No signs of infection noted, but we will check stool studies. ?Hold off on antibiotics for now.? Follow CBC closely. 3. Hyperkalemia.? Mild.? We will follow BMP tomorrow. 4. Hyperlipidemia.? Continue statin. 5. Hypertension.? Continue home medication. 6. Asthma.? Albuterol as needed. 7. Deep vein thrombosis prophylaxis with heparin. [facility] Medical History Asthma High cholesterol HTN (hypertension) Hx of opioid abuse Surgical History History of colonoscopy History of esophagogastroduodenoscopy (EGD) Hx of knee surgery Family History Father History of stomach cancer Mother Hx of type 2 diabetes mellitus Hx of angina pectoris Breast cancer Diabetes Family/Other Diabetes Social History Household Members: Significant Other Housing: Apartment Do you presently have visiting nurse or other home services: No Alcohol intake: never Patient Tobacco Use Status: Never used Tobacco Second Hand Smoke Exposure: No Advance Directives Date on File: 04/18/20 service: No Current occupational status: employed Review of Systems Const All systems reviewed & are unremarkable except as noted in HPI and below Physical Exam Vital Signs: Last Vital Signs Pulse 72 11/20/22 11:00 BP 131/70 11/20/22 11:00 BMI result Body Mass Index 32.2 Const General: healthy appearing and no acute distress Nutritional Appearance: obese Orientation/consciousness: patient oriented x3 Limitations: no limitations HEENT Head: Yes normal to inspection Ears: hearing grossly normal bilaterally Eyes Sclerae: sclerae normal Pupils: Equal, round and reactive pupils present Neck Neck: Yes normal visual inspection Chest Chest palpation & inspection: normal inspection of the chest Resp Effort & Inspection: normal respiratory effort Auscultation: clear to auscultation bilaterally Cardio Palpation: normal PMI Rate: regular rate Rhythm: regular rhythm Heart sounds: S1 normal heart sound present, S2 normal heart sound present and no murmurs GI Palpation (GI): Soft to palpation, nontender and No hepatosplenomegaly present Auscultation: normal bowel sounds Rectal Exam - Female: deferred Skin General skin exam: no rashes or lesions noted Neuro General: patient oriented x3, gait normal and moves all extremities Cranial nerves: Yes Equal, round and reactive pupils present Psych Appearance: grossly normal Mental Status: mental status grossly normal Assessment & Plan Assessment & Plan (1) Colon cancer screening: Comment: 06/08/20 colonoscopy showed moderate diverticulosis and no polyps were detected. Random biopsies obtained from the TI, right and left colon were normal. Repeat colonoscopy is advised in 5 years (due 05/2025) Code(s): Z12.11 - Encounter for screening for malignant neoplasm of colon (2) Ileitis: Code(s): K52.9 - Noninfective gastroenteritis and colitis, unspecified (3) Chronic constipation: Code(s): K59.09 - Other constipation (4) Abdominal bloating: Code(s): R14.0 - Abdominal distension (gaseous) (5) Abnormal computed tomography of abdomen and pelvis: Code(s): R93.5 - Abnormal findings on diagnostic imaging of other abdominal regions, including retroperitoneum (6) Vitamin D deficiency: Code(s): E55.9 - Vitamin D deficiency, unspecified Plan 67 YF with hypertension and chronic constipation hospitalized at [facility] [place] 2019 with abdominal pain.? Abd CT scan showed a small amount of free fluid within the pelvis with question nondilated but thick-walled loop of ileum with some stranding within the mesentery suspect ed to represent ileitis. 06/08/20 EGD showed gastritis, small bowel biopsies were negative for celiac sprue. Same-day colonoscopy showed moderate diverticulosis in the left colon.? Random biopsies obtained from the TI, right and left colon were normal. Patient was given the following advice after her previous visit: 1.? Please try stopping milk products (Milk, cheese, ice cream and milk based sauces) for 2 weeks to see if gas and bloating improves. If it bloating gets better, it indicates you may have lactose intolerance (see handout) 2.? You can take Miralax 2-3 times a week for 2 weeks to see if it is helpful for the bloating 3.? If above two strategies are not helpful, you can go on a FODMAP diet for 6 weeks - see handout on FODMAP diet Pt was advised a trail of simethicone (Instead of peptobismol for ?abdominal bloating. FMLA paperwork filled for patient at pt's request. (Pt advised to have FMLA paperwork filled by her PCP in the future) 11/20/22 Symptoms improved after stopping milk products and switching to almond milk Pt is drinking Life water with electrolytes and staying regular and having a BM every day. Pt was advised to continue with above regimen FU in 6 months Medications: New cholecalciferol (vitamin D3) 250 mcg PO 2XW 90 days 26 tabs 1RF E55.9 - Vitamin D deficiency, unspecified Coding Level of Care Code Est Pt Level 4 (77813) Diagnoses Colon cancer screening Z12.11 Ileitis K52.9 Chronic constipation K59.09 Abdominal bloating R14.0 Abnormal computed tomography of abdomen and pelvis R93.5 Vitamin D deficiency E55.9 Time Spent (min) 22
[2022-11-20 11:00] VITALS: BP 131/70; PULSE 72; BMI 32.2
== END 2022-11-20 11:31 | disposition home or self-care (01) ==
PROVIDERS: Visit Provider Internal Medicine Gastroenterology
DX: K52.9 Noninfective gastroenteritis and colitis, unspecified (principal); K59.09 Other constipation; R14.0 Abdominal distension (gaseous); R93.5 Abnormal findings on diagnostic imaging of other abdominal regions, including retroperitoneum
CPT/HCPCS: 99214

== ENCOUNTER → 2022-11-20 10:52 | Outpatient (BNVA) | payer OTHER, SELFPAY | PROVIDERS: Visit Provider Internal Medicine Gastroenterology ==